=== PATIENT | female | born 1950 | race Caucasian/White ===

== ENCOUNTER → 2016-08-01 | Outpatient (CLI) | payer MEDICARE, OTHER | LOC: RAD 06:47 | PROVIDERS: ATTEND Nurse Practitioner | DX: M54.9 Dorsalgia, unspecified (principal); M48.02 Spinal stenosis, cervical region; M50.223 Other cervical disc displacement at C6-C7 level | CPT/HCPCS: 72141 ==

== ENCOUNTER 2016-09-03 10:10 | Inpatient (IN) | payer MEDICARE, OTHER ==
--- NOTE | 2016-09-03 10:39 | ER Document Report ---
ED Medical Screen (RME) - General Chief Complaint: Weakness Stated Complaint: BLOOD SUGAR PROBLEMS Mode of Arrival: Ambulatory Information source: Patient Notes: 66 y/o F presents to ED c/o generalized weakness and high blood sugar over the last month. Denies fever or chest pain. I have greeted and performed a rapid initial assessment of this patient. A comprehensive ED assessment and evaluation of the patient, analysis of test results and completion of the medical decision making process will be conducted by additional ED providers. TRAVEL OUTSIDE OF THE [place] IN LAST 30 DAYS: No - Related Data Allergies/Adverse Reactions: No Known Allergies Allergy (Verified 09/03/16 10:32) Past Medical History - Social History Chew tobacco use (# tins/day): No Drug Abuse: None - Past Medical History Cardiac Medical History: Reports: Hx Hypertension Denies: Hx Coronary Artery Disease, Hx Heart Attack Pulmonary Medical History: Reports: Hx Asthma, Hx Pneumonia Denies: Hx Bronchitis, Hx COPD Neurological Medical History: Denies: Hx Cerebrovascular Accident, Hx Seizures Renal/ Medical History: Denies: Hx Peritoneal Dialysis Musculoskeltal Medical History: Reports Hx Arthritis Psychiatric Medical History: Reports: Hx Depression Past Surgical History: Reports: Hx Hysterectomy - Immunizations Hx Diphtheria, Pertussis, Tetanus Vaccination: Yes Physical Exam - Vital signs Vitals: Temp Pulse Resp BP Pulse Ox 97.9 F 61 20 108/54 L 99 09/03/16 10:09/03/16 10:09/03/16 10:33 09/03/16 10:33 09/03/16 10:33 - General General appearance: Alert In distress: None - Respiratory Respiratory status: No respiratory distress - Cardiovascular Rhythm: Regular Pulses: Normal: Radial Normal capillary refill: Yes Course - Vital Signs Vital signs: Temp Pulse Resp BP Pulse Ox 97.9 F 61 20 108/54 L 99 09/03/16 10:33 09/03/16 10:33 09/03/16 10:33 09/03/16 10:33 09/03/16 10:33
[2016-09-03] MEDS ORDERED: PANTOPRAZOLE SODIUM 40 MG VIAL IV ONE (11:13)
[2016-09-03] MEDS ORDERED: NORMAL SALINE 1000 ML 1,000 ML IV ONE (11:13)
[2016-09-03 11:57] LABS: APPEARANCE,URINE CLEAR; BILIRUBIN,URINE NEGATIVE (NEGATIVE); GLUCOSE, URINE >=500 mg/dL (NEGATIVE); KETONES,URINE NEGATIVE (NEGATIVE); LEUKOCYTE ESTERASE,URINE TRACE (NEGATIVE); NITRITE,URINE NEGATIVE (NEGATIVE); PROTEIN,URINE NEGATIVE (NEGATIVE); URINE SPECIFIC GRAVITY 1.026; UROBILINOGEN,URINE NEGATIVE mg/dL (<2.0)
[2016-09-03 12:07] LABS: PROTHROMBIN TIME 19.9 SEC (11.4-15.4)
[2016-09-03 12:08] LABS: PARTIAL THROMBOPLASTIN TIME 37.1 SEC (23.5-35.8)
[2016-09-03 12:09] LABS: HGB HCT DIFFERENCE -1.2; MEAN CORPUSCULAR HEMOGLOBIN 22.8 pg (27.0-33.4); MEAN CORPUSCULAR HGB CONC 30.3 g/dL (32.0-36.0); MEAN CORPUSCULAR VOLUME 75 fl (80-97); RED BLOOD COUNT 1.92 10^6/uL (3.72-5.28); RED CELL DISTRIBUTION WIDTH 19.6 % (11.5-14.0); WHITE BLOOD COUNT 12.1 10^3/uL (4.0-10.5)
[2016-09-03] MEDS ORDERED: NORMAL SALINE 250 ML IV PRN ×4 (12:17→13:13)
[2016-09-03 12:23] LABS: HEMOGLOBIN 4.4 g/dL (12.0-15.5)
[2016-09-03 12:24] LABS: HEMATOCRIT 14.4 % (36.0-47.0)
[2016-09-03 12:31] LABS: ALANINE AMINOTRANSFERASE 27 U/L (9-52); ALBUMIN 3.8 g/dL (3.5-5.0); ALKALINE PHOSPHATASE 56 U/L (38-126); ANION GAP 15 (5-19); ASPARTATE AMINO TRANSFERASE 29 U/L (14-36); BILIRUBIN,TOTAL 0.6 mg/dL (0.2-1.3); BLOOD UREA NITROGEN 12 mg/dL (7-20); CALCIUM 9.5 mg/dL (8.4-10.2); CARBON DIOXIDE 21 mmol/L (22-30); CHLORIDE 99 mmol/L (98-107); CREATININE RESULT 0.78 mg/dL (0.52-1.25); GLUCOSE 149 mg/dL (75-110); LIPASE 75.3 U/L (23-300); PHOSPHORUS 4.5 mg/dL (2.5-4.5); POTASSIUM 4.8 mmol/L (3.6-5.0); SODIUM 135.3 mmol/L (137-145); TOTAL PROTEIN 6.6 g/dL (6.3-8.2)
[2016-09-03 12:36] LABS: BASOPHILS % (MANUAL) 1 % (0-2); EOSINOPHILS % (MANUAL) 0 % (0-6); LYMPHOCYTES % (MANUAL) 26 % (13-45); NUCLEATED RED BLOOD CELLS 1 /100 WBC (0); TOTAL CELLS COUNTED 100
[2016-09-03 12:38] LABS: ANISOCYTOSIS 2+; HYPOCHROMASIA 3+; MICROCYTOSIS 1+; POLYCHROMASIA 1+; TOXIC GRANULATION SLIGHT
--- NOTE | 2016-09-03 13:39 | ER Document Report ---
ED General - General Chief Complaint: Weakness Stated Complaint: BLOOD SUGAR PROBLEMS Mode of Arrival: Ambulatory TRAVEL OUTSIDE OF THE [place] IN LAST 30 DAYS: No - HPI Patient complains to provider of: generalized weakness Notes: Patient coming in for evaluation of generalized weakness. Patient also concerned about her blood sugars. Patient states she has multiple medical problems recently had a bout with A. fib Patient recently had a remote heart monitor placed and recently is currently on clindamycin for anabolic coverage after the. Otherwise patient states compliance with her medications states that she has been having "red velvet" stools over the last 3 days. Upon my entrance into the examination room patient is very pale. Other in complaining of generalized weakness patient has no specific complaints of fevers chills nausea vomiting chest pain abdominal pain - Related Data Allergies/Adverse Reactions: No Known Allergies Allergy (Verified 09/03/16 10:32) Past Medical History - General Information source: Patient - Social History Smoking Status: Never Smoker Chew tobacco use (# tins/day): No Drug Abuse: None Family History: Reviewed & Not Pertinent Patient has suicidal ideation: No Patient has homicidal ideation: No - Past Medical History Cardiac Medical History: Reports: Hx Hypertension Denies: Hx Coronary Artery Disease, Hx Heart Attack Pulmonary Medical History: Reports: Hx Asthma, Hx Pneumonia Denies: Hx Bronchitis, Hx COPD Neurological Medical History: Denies: Hx Cerebrovascular Accident, Hx Seizures Renal/ Medical History: Denies: Hx Peritoneal Dialysis Musculoskeltal Medical History: Reports Hx Arthritis Psychiatric Medical History: Reports: Hx Depression Past Surgical History: Reports: Hx Hysterectomy - Immunizations Hx Diphtheria, Pertussis, Tetanus Vaccination: Yes Hx Pneumococcal Vaccination: 08/02/14 Review of Systems - Review of Systems Constitutional: Weakness EENT: No symptoms reported Cardiovascular: No symptoms reported Respiratory: No symptoms reported Gastrointestinal: Other - Bloody stools Genitourinary: No symptoms reported Female Genitourinary: No symptoms reported Musculoskeletal: No symptoms reported Skin: No symptoms reported Hematologic/Lymphatic: No symptoms reported Neurological/Psychological: Weakness -: Yes All other systems reviewed and negative Physical Exam - Vital signs Vitals: Temp Pulse Resp BP Pulse Ox 97.9 F 61 20 108/54 L 99 09/03/16 10:33 09/03/16 10:33 09/03/16 10:33 09/03/16 10:33 09/03/16 10:33 Interpretation: Normal - General General appearance: Appears well, Alert - HEENT Head: Normocephalic, Atraumatic Eyes: Normal Conjunctiva: Other - Pale Pupils: PERRL - Respiratory Respiratory status: No respiratory distress Chest status: Nontender Breath sounds: Normal Chest palpation: Normal - Cardiovascular Rhythm: Regular Heart sounds: Normal auscultation Murmur: No - Abdominal Inspection: Normal Distension: No distension Bowel sounds: Normal Tenderness: Nontender Organomegaly: No organomegaly - Rectal Stool: Bloody Hemorrhoids: None - Back Back: Normal, Nontender - Extremities General upper extremity: Normal inspection, Nontender, Normal color, Normal ROM , Normal temperature General lower extremity: Normal inspection, Nontender, Normal color, Normal ROM , Normal temperature, Normal weight bearing. No: Dian's sign - Neurological Neuro grossly intact: Yes Cognition: Normal Orientation: AAOx4 [place] Coma Scale Eye Opening: Spontaneous [place] Coma Scale Verbal: Oriented [place] Coma Scale Motor: Obeys Commands [place] Coma Scale Total: 15 Speech: Normal Motor strength normal: LUE, RUE, LLE, RLE Sensory: Normal - Psychological Associated symptoms: Normal affect, Normal mood - Skin Skin Temperature: Warm Skin Moisture: Dry Skin Color: Pale Course - Re-evaluation Re-evalutation: 09/03/16 13:37 Patient coming in for evaluation of weakness a sent have a hemoglobin of 4.4 hematocrit 14. Rectal exam showed bright red blood. Discussed with hospitalist and GI on-call. Hospitalist was requesting FFP which will be given patient also receive 2 units of blood. Did discuss with GI on-call Dr. Echeverria. Patient will be admitted to the ICU 09/03/16 14:55 - Vital Signs Vital signs: Temp Pulse Resp BP Pulse Ox 97.9 F 61 16 98/48 L 100 09/03/16 10:33 09/03/16 10:33 09/03/16 13:07 09/03/16 11:49 09/03/16 13:07 - Laboratory Result Diagrams: 09/03/16 11:35 09/03/16 11:35 Laboratory results interpreted by me: 09/03/16 09/03/16 09/03/16 10:40 11:25 11:35 WBC 12.1 H RBC 1.92 L Hgb 4.4 L* Hct 14.4 L* MCV 75 L MCH 22.8 L MCHC 30.3 L RDW 19.6 H Plt Count 452 H PT APTT Sodium Carbon Dioxide Glucose POC Glucose 175 H Lactic Acid Urine Glucose (UA) >=500 H Ur Leukocyte Esterase TRACE H Crossmatch 09/03/16 09/03/16 09/03/16 11:35 11:35 11:35 WBC RBC Hgb Hct MCV MCH MCHC RDW Plt Count PT APTT Sodium 135.3 L Carbon Dioxide 21 L Glucose 149 H POC Glucose Lactic Acid 3.5 H Urine Glucose (UA) Ur Leukocyte Esterase Crossmatch See Detail 09/03/16 11:35 WBC RBC Hgb Hct MCV MCH MCHC RDW Plt Count PT 19.9 H APTT 37.1 H Sodium Carbon Dioxide Glucose POC Glucose Lactic Acid Urine Glucose (UA) Ur Leukocyte Esterase Crossmatch Critical Care Note - Critical Care Note Total time excluding time spent on procedures (mins): 35 Comments: Patient seen and evaluated patient has a GI bleed. Patient will be admitted to ICU Discharge - Discharge Clinical Impression: Coagulopathy, Anemia requiring transfusions A-fib Qualifiers: Atrial fibrillation type: unspecified Qualified Code(s): I48.91 - Unspecified atrial fibrillation GI bleed Qualifiers: GI bleed type/associated pathology: unspecified gastrointestinal hemorrhage type Qualified Code(s): K92.2 - Gastrointestinal hemorrhage, unspecified Condition: Good Disposition: ADMITTED INPATIENT Admitting Provider: Leslieist Joy Silver Unit Admitted: ICU
[2016-09-03] MEDS ORDERED: ACETAMINOPHEN 325 MG TABLET PO PRN (14:37)
[2016-09-03] MEDS ORDERED: ONDANSETRON HCL INJ/PF 4 MG/2 ML SDV IV PRN (14:45)
--- NOTE | 2016-09-03 15:07 | PDOC H&P ---
History of Present Illness Admission Date/PCP: 09/03/16 14:18 CRYSTAL QUEVEDO Patient complains of: Generalized weakness History of Present Illness: ATILIO LARA is a 66 year old female, with history of hypertension, hypothyroidism, atrial fibrillation states she is taking pradaxa and Coumadin presents to the hospital because of generalized weakness. The patient has been having palpitations chronically but more recent for this past several weeks. Patient likewise noted maroon-colored stools. There is no melena or hematemesis. Patient had intermittent abdominal discomfort that she attributes it to her hernia. Denies any diarrhea or constipation. Patient is getting progressively weak, which shortness of breath on exertion. She started to begin having lightheadedness and dizziness especially on standing up. Patient reports that she has been evaluated by the physician, she was referred to drupal web developer for an event recorder was placed. There is no syncopal episode noted. Earlier today, patient feels that her legs are so weak and heavy therefore she presents to the hospital for evaluation. Patient reportedly coagulopathic, with hemoglobin of 4. MCV was low. Patient was given FFP, blood transfusion was started, gastroenterology was consulted from the emergency room and patient was referred to the hospitalist for admission. Past Medical History Past Medical History: Medication reconciliation pending verification from the patient's pharmacist Cardiac Medical History: Reports: Hypertension Denies: Coronary Artery Disease, Myocardial Infarction Pulmonary Medical History: Reports: Asthma, Pneumonia Denies: Bronchitis, Chronic Obstructive Pulmonary Disease (COPD) Neurological Medical History: Denies: Seizures Endocrine Medical History: Reports: Diabetes Mellitus Type 2, Hypothyroidism Musculoskeltal Medical History: Reports: Arthritis Psychiatric Medical History: Reports: Depression Hematology: Denies: Anemia Past Surgical History Past Surgical History: Reports: Hysterectomy, Other - Back surgery Social History Information Source: Patient Smoking Status: Never Smoker Frequency of Alcohol Use: Rare Hx Recreational Drug Use: No Drugs: None Hx Prescription Drug Abuse: No Family History Family History: Other - Dementia, abdominal aortic aneurysm Parental Family History Reviewed: Yes Children Family History Reviewed: Yes Sibling(s) Family History Reviewed.: Yes Medication/Allergy Home Medications: Albuterol Sulfate [Albuterol Sulfate 2.5mg/3 mL] 1 each IH ASDIR PRN 10/27/13 Aspirin [Ecotrin] 81 mg PO DAILY 10/27/13 Calcium Carbonate [Calcium] 500 mg PO DAILY 10/27/13 Esomeprazole Mag Trihydrate [Nexium] 40 mg PO DAILY 10/27/13 Estrogens, Conjugated [Premarin 0.9 mg Tablet] 0.9 mg PO DAILY 10/27/13 Fluticasone/Salmeterol [Advair 500-50 Diskus 28 Dose] 1 puff IH BID 10/27/13 Losartan Potassium [Cozaar] 50 mg PO DAILY 10/27/13 Meloxicam [Mobic 7.5 mg Tablet] 7.5 mg PO DAILY 10/27/13 Metformin HCl [Glucophage] 500 mg PO BID 10/27/13 Montelukast Sodium [Singulair 10 mg Tablet] 10 mg PO DAILY 10/27/13 Venlafaxine HCl [Effexor 75 mg Tablet] 3 tab PO DAILY 10/27/13 Buspirone HCl [Buspar 5 mg Tablet] 5 mg PO DAILY 07/27/14 Multivitamin A-Z Women 1 tab PO DAILY 07/27/14 [place]-3 Fatty Acids/Fish Oil [Fish Oil 1,000 mg Capsule] 1,000 mg PO DAILY 07/27 Atorvastatin Calcium [Lipitor 80 mg Tablet] 40 mg PO QHS #30 tablet 08/02/14 Cephalexin Monohydrate [Keflex 500 mg Capsule] 500 mg PO Q6 #20 capsule Digoxin [Lanoxin 0.25 mg Tablet] 0.25 mg PO DAILY #30 tablet 08/02/14 Docusate Sodium [Colace 100 mg Capsule] 100 mg PO BID #60 capsule 08/02/14 Fexofenadine HCl [Salima] 180 mg PO DAILY #0 08/02/14 Levothyroxine Sodium 200 mcg PO DAILY #30 tablet 08/02/14 Metoprolol Succinate [Toprol Xl 50 mg Tab.sr] 75 mg PO Q12 #60 tab.sr.24h Warfarin Sodium [Coumadin 5 mg Tablet] 7.5 mg PO QHS #45 tablet 08/02/14 Allergies/Adverse Reactions: No Known Allergies Allergy (Verified 09/03/16 10:32) Review of Systems Constitutional: PRESENT: weakness - Generalized. ABSENT: chills, fever(s), headache(s), weight gain, weight loss Eyes: ABSENT: visual disturbances Ears: ABSENT: hearing changes Nose, Mouth, and Throat: ABSENT: mouth pain, sore throat Cardiovascular: PRESENT: dyspnea on exertion, edema - Chronic lower extremity, palpitations. ABSENT: chest pain, orthropnea Respiratory: ABSENT: cough, dyspnea, hemoptysis Gastrointestinal: PRESENT: abdominal pain - Mild, hematochezia. ABSENT: constipation, diarrhea, hematemesis, melena, nausea, vomiting Genitourinary: ABSENT: difficulty urinating, dysuria, hematuria Musculoskeletal: ABSENT: joint swelling Integumentary: ABSENT: pruritus, rash, wounds Neurological: PRESENT: dizziness. ABSENT: abnormal gait, abnormal speech, confusion, focal weakness, syncope Psychiatric: ABSENT: anxiety, depression, homidical ideation, suicidal ideation Endocrine: ABSENT: cold intolerance, heat intolerance, polydipsia, polyuria Hematologic/Lymphatic: PRESENT: easy bruising. ABSENT: easy bleeding Physical Exam Vital Signs: Temp Pulse Resp BP Pulse Ox 97.9 F 61 16 98/48 L 100 09/03/16 10:33 09/03/16 10:33 09/03/16 13:07 09/03/16 11:49 09/03/16 13:07 General appearance: PRESENT: no acute distress, cooperative, obese Head exam: PRESENT: atraumatic, normocephalic Eye exam: PRESENT: conjunctiva pale, EOMI, PERRLA. ABSENT: scleral icterus Ear exam: PRESENT: normal external ear exam. ABSENT: drainage Mouth exam: PRESENT: dry mucosa, tongue midline. ABSENT: neck supple Throat exam: ABSENT: post pharyngeal erythema, tonsillar erythema Neck exam: ABSENT: carotid bruit, JVD, lymphadenopathy, thyromegaly Respiratory exam: PRESENT: clear to auscultation nithya, unlabored. ABSENT: rales , rhonchi, wheezes Cardiovascular exam: PRESENT: irregular rhythm, +S1, +S2. ABSENT: diastolic murmur, gallop, rubs, systolic murmur Pulses: PRESENT: normal dorsalis pedis pul Vascular exam: PRESENT: normal capillary refill GI/Abdominal exam: PRESENT: hyperactive bowel sounds, soft, other - Palpable induration on the anterior abdominal wall below the umbilicus and the right side probably underlying hernia. No tenderness noted. ABSENT: distended, guarding, mass, organolmegaly, rebound, tenderness Rectal exam: PRESENT: deferred Extremities exam: PRESENT: full ROM. ABSENT: calf tenderness, clubbing, pedal edema Neurological exam: PRESENT: alert, awake, oriented to person, oriented to place , oriented to time, oriented to situation Psychiatric exam: PRESENT: appropriate affect, normal mood. ABSENT: homicidal ideation, suicidal ideation Skin exam: PRESENT: dry, intact, warm. ABSENT: cyanosis, rash Results Impressions: Chest X-Ray 09/03/16 11:12 IMPRESSION: No significant interval change. No acute findings. Other findings as noted above Assessment & Plan - Time Time Spent: 50 to 70 Minutes - Inpatient Certification Based on my medical assessment, after consideration of the patient's comorbidities, presenting symptoms, or acuity I expect that the services needed warrant INPATIENT care.: Yes I certify that my determination is in accordance with my understanding of Medicare's requirements for reasonable and necessary INPATIENT services [42 CFR 412.3e].: Yes Medical Necessity: Significant Comorbidiites Make Outpatient Treatment Too Risky , Need Close Monitoring Due to Risk of Patient Decompensation, Need For IV Fluids, Need For Continuous Telemetry Monitoring, Risk of Complication if Not Cared For in Hospital, Risk of Diagnosis Which Will Require Inpatient Eval/Care/ Monitoring Post Hospital Care: D/C Machine Striper Documentation - Plan Summary Plan Summary: The patient will be admitted to intensive care unit. We will hydrate the patient with normal saline gently. We will transfuse a total of 4 units of packed RBC. 2 units of FFP has been initiated in the emergency room. In the meantime we will obtain serial hematocrit monitoring posttransfusion. I will put the patient on Protonix drip. I will continue the digoxin and the metoprolol but give on a lower dose. I will hold any other antihypertensive medications. I will hold the patient's anticoagulants. Dr. Echeverria was consulted , case discussed with him, who will evaluate the patient. I will culture the patient's urine, begin ceftriaxone. MEGGAN pettit and Libby for DVT prophylaxis. Supplemental oxygen will be given. Further testing depends on initial evaluation as outlined above.
--- NOTE | 2016-09-03 15:33 | EKG REPORT ---
SEVERITY:- ABNORMAL ECG - SINUS RHYTHM NONSPECIFIC T ABNORMALITIES, DIFFUSE LEADS : Confirmed by: Christian Zhang MD 03-Sep-2016 15:32:37
[2016-09-03] MEDS ORDERED: DIGOXIN 0.25 MG TABLET PO ONE (16:00)
[2016-09-03] MEDS: CEFTRIAXONE 1 GM/D5W RTU 1 GM/50 ML RTUPB IV SCH (16:31)
[2016-09-03] MEDS: NORMAL SALINE 1000 ML 1,000 ML IV PRN (18:45)
[2016-09-03] MEDS: NORMAL SALINE 100 ML with PANTOPRAZOLE SODIUM 80 MG IV PRN ×2 (18:45)
[2016-09-03] MEDS ORDERED: BISACODYL 5 MG TABEC PO ONE (21:00)
[2016-09-03] MEDS ORDERED: METOPROLOL SUCCINATE 50 MG TAB.SR.24H PO SCH (22:00)
[2016-09-04] MEDS: METOPROLOL SUCCINATE 25 MG TAB.SR.24H PO SCH ×2 (04:25→10:52)
[2016-09-04 06:39] LABS: ANION GAP 14 (5-19); BLOOD UREA NITROGEN 8 mg/dL (7-20); CALCIUM 8.7 mg/dL (8.4-10.2); CARBON DIOXIDE 21 mmol/L (22-30); CHLORIDE 105 mmol/L (98-107); CREATININE RESULT 0.61 mg/dL (0.52-1.25); GLUCOSE 99 mg/dL (75-110); MAGNESIUM 1.8 mg/dL (1.6-2.3); POTASSIUM 4.5 mmol/L (3.6-5.0); SODIUM 139.8 mmol/L (137-145)
[2016-09-04] MEDS ORDERED: PEG 3350/NA SULF,BICARB,CL/KCL 4000 ML PO ONE (07:00)
[2016-09-04] MEDS ORDERED: (PENDING PHARMACY ID) (Levothyroxine Sodium [Levothyroxine Sodium] 200 MCG) PO SCH (10:00)
[2016-09-04] MEDS: NORMAL SALINE 1000 ML 1,000 ML IV PRN ×2 (10:05→18:46)
[2016-09-04] MEDS: DIGOXIN 0.25 MG TABLET PO SCH (10:53)
[2016-09-04] MEDS: LEVOTHYROXINE SODIUM 0.1 MG TABLET PO SCH (10:53)
[2016-09-04] MEDS: NORMAL SALINE 100 ML with PANTOPRAZOLE SODIUM 80 MG IV PRN ×2 (11:21)
[2016-09-04 13:51] LABS: ABSOLUTE BASOPHILS # (AUTO) 0.1 10^3/uL (0.0-0.2); ABSOLUTE EOSINOPHILS # (AUTO) 0.1 10^3/uL (0.0-0.6); ABSOLUTE LYMPHOCYTES (AUTO) 1.9 10^3/uL (0.5-4.7); ABSOLUTE MONOCYTES (AUTO) 1.4 10^3/uL (0.1-1.4); ABSOLUTE NEUT (AUTO) 7.5 10^3/uL (1.7-8.2); BASOPHILS % (AUTO) 0.5 % (0-2); EOSINOPHILS % (AUTO) 0.7 % (0-6); HEMATOCRIT 23.2 % (36.0-47.0); HGB HCT DIFFERENCE -0.4; LYMPHOCYTES % (AUTO) 17.6 % (13-45); MEAN CORPUSCULAR HEMOGLOBIN 25.3 pg (27.0-33.4); MEAN CORPUSCULAR HGB CONC 32.8 g/dL (32.0-36.0); MEAN CORPUSCULAR VOLUME 77 fl (80-97); MONOCYTES % (AUTO) 12.9 % (3-13); RED CELL DISTRIBUTION WIDTH 17.2 % (11.5-14.0); SEGMENTED NEUTROPHILS % (AUTO) 68.3 % (42-78)
[2016-09-04 13:55] LABS: HEMOGLOBIN 7.6 g/dL (12.0-15.5)
[2016-09-04] MEDS ORDERED: NORMAL SALINE 250 ML IV PRN ×2 (13:57)
--- NOTE | 2016-09-04 14:45 | PDOC PROGRESS REPORT ---
Subjective Progress Note for:: 09/04/16 Subjective:: she denies any chest pain or shortness of breath. She has completed 4 units of packed red blood cells her hemoglobin is still less than 8. Physical Exam Vital Signs: Temp Pulse Resp BP Pulse Ox 99.9 F 127 H 19 110/64 95 09/04/16 12:30 09/04/16 14:17 09/04/16 14:17 09/04/16 14:17 09/04/16 14:17 Intake & Output 09/03/16 09/04/16 09/05/16 06:59 06:59 06:59 Intake Total 907 598 Balance 907 598 General appearance: PRESENT: no acute distress Eye exam: PRESENT: conjunctiva pink. ABSENT: scleral icterus Mouth exam: PRESENT: moist, tongue midline Neck exam: ABSENT: JVD Respiratory exam: PRESENT: clear to auscultation nithya. ABSENT: rales, rhonchi, wheezes Cardiovascular exam: PRESENT: RRR. ABSENT: diastolic murmur, rubs, systolic murmur GI/Abdominal exam: PRESENT: normal bowel sounds, soft, other - Large ventral hernia. ABSENT: distended, guarding, mass, organolmegaly, rebound, tenderness Extremities exam: ABSENT: calf tenderness, clubbing, pedal edema Neurological exam: PRESENT: alert, awake, oriented to person, oriented to place , oriented to time, oriented to situation Psychiatric exam: PRESENT: appropriate affect Skin exam: PRESENT: dry, intact, warm. ABSENT: cyanosis, rash Results Laboratory Results: 09/04/16 13:28 09/04/16 06:18 09/03/16 09/04/16 09/04/16 16:40 06:18 13:28 WBC 11.0 H RBC 3.00 L Hgb 7.6 L D Hct 23.2 L MCV 77 L MCH 25.3 L MCHC 32.8 RDW 17.2 H Plt Count 250 Seg Neutrophils % 68.3 Lymphocytes % 17.6 Monocytes % 12.9 Eosinophils % 0.7 Basophils % 0.5 Absolute Neutrophils 7.5 Absolute Lymphocytes 1.9 Absolute Monocytes 1.4 Absolute Eosinophils 0.1 Absolute Basophils 0.1 Sodium 139.8 Potassium 4.5 Chloride 105 Carbon Dioxide 21 L Anion Gap 14 BUN 8 Creatinine 0.61 Est GFR ( Amer) > 60 Est GFR (Non-Af Amer) > 60 Glucose 99 Lactic Acid 1.5 Calcium 8.7 Magnesium 1.8 Impressions: Chest X-Ray 09/03/16 11:12 IMPRESSION: No significant interval change. No acute findings. Other findings as noted above Assessment & Plan - Diagnosis (1) GI bleed Qualifiers: GI bleed type/associated pathology: unspecified gastrointestinal hemorrhage type Qualified Code(s): K92.2 - Gastrointestinal hemorrhage, unspecified Is this a current diagnosis for this admission?: YesPlan: The patient has been taking GoLYTELY and has been move her bowels quite frequently. This most likely represents a diverticular bleed. Patient is to be getting a colonoscopy later today by GI. Hemoglobin has improved but still less than 8. We will give an additional 2 units of packed red blood cells. (2) A-fib Qualifiers: Atrial fibrillation type: unspecified Qualified Code(s): I48.91 - Unspecified atrial fibrillation Is this a current diagnosis for this admission?: YesPlan: Patient is rate controlled at this time. (3) Anemia requiring transfusions Is this a current diagnosis for this admission?: YesPlan: Secondary to acute blood loss from lower GI system. Transfuse as needed. - Time Time Spent with patient: 25-34 minutes - Inpatient Certification Medical Necessity: Need Close Monitoring Due to Risk of Patient Decompensation
[2016-09-04] MEDS ORDERED: NALOXONE HCL INJ/PF 0.4 MG/1 ML SDV ONE (16:41)
[2016-09-04] MEDS ORDERED: PROMETHAZINE HCL INJ 25 MG/1 ML VIAL ONE (16:42)
[2016-09-04] MEDS ORDERED: FENTANYL CITRATE INJ/PF 100 MCG/2 ML AMPUL ONE (16:42)
[2016-09-04] MEDS ORDERED: FLUMAZENIL INJ 0.5 MG/5 ML VIAL IV ONE (16:43)
[2016-09-04] MEDS ORDERED: EPINEPHRINE INJ 1 MG/10 ML DISP.SYRIN ONE (16:43)
[2016-09-04] MEDS ORDERED: GLUCAGON,HUMAN RECOMB 1 MG INJ ONE (16:43)
[2016-09-04] MEDS: CEFTRIAXONE 1 GM/D5W RTU 1 GM/50 ML RTUPB IV SCH (16:53)
[2016-09-04] MEDS: MIDAZOLAM 2 MG/2 ML INJ ONE ×3 (17:47→18:11)
[2016-09-04] MEDS: FENTANYL CITRATE INJ/PF 100 MCG/2 ML AMPUL ONE ×2 (17:50→17:55)
--- NOTE | 2016-09-04 18:34 | CONSULTATION REPORT E ---
Consultation Report NAME: ATILIO LARA : 1950 AGE: 66Y DATE: 09/04/2016 609 A TO: TAMICA CURRIE M.D. FROM: Requesting Physician HISTORY OF PRESENT ILLNESS: A 66-year-old patient admitted through the emergency room with generalized weakness and severe anemia. Her hemoglobin was 4.4 on admission with microcytosis. She also had a PT of 19.9. According to the patient, she has been seeing redness in her stool for about a month. She denies abdominal pain unless with palpation. There is no nausea or vomiting. It appears she was taking Coumadin and Pradaxa on admission. Her EGD and colonoscopy was about 5 years ago and as far as she knows, they were unremarkable. PAST MEDICAL HISTORY: 1. Hypertension. 2. Asthma. 3. Depression. 4. Arthritis. 5. Atrial fibrillation. PAST SURGICAL HISTORY: 1. Colonoscopy. 2. Hysterectomy. MEDICATIONS: Were reviewed. ALLERGIES: None. SOCIAL HISTORY: Noncontributory. REVIEW OF SYSTEMS: Other than the above, this is not contributory. PHYSICAL EXAMINATION: GENERAL: Shows an obese lady in no distress. VITAL SIGNS: She has a heart rate of over 130, blood pressure 130/83. HEENT: Has pallor but no jaundice. Oropharynx is normal. NECK: No bruit, no JVD. CHEST: No deformity. LUNGS: Clear. ABDOMEN: Soft and obese. Difficult to feel for masses. Bowel sounds active. NEUROLOGIC: Not fully examined. LABORATORY TESTS: Showed a high platelet count of 452, white count of 12, normal LFTs and lipase. ASSESSMENT AND PLAN: Gastrointestinal bleed. The patient came in with blood in the stool and severe anemia. She may have been on Coumadin and Pradaxa together. These are currently on hold. She did receive 2 units of FFP and 5 units of blood so far. She will undergo an EGD and colonoscopy for further evaluation. DICTATING PHYSICIAN: TAMICA CURRIE M.D. [id number] PHY#: [id number] ID: [id number] JOB#: [id number] ACCT: [id number] cc:TAMICA CURRIE M.D. >
--- NOTE | 2016-09-04 19:13 | OPERATIVE REPORT E ---
Operative Report NAME: ATILIO LARA : 1950 AGE: 66Y DATE OF SURGERY: 09/04/2016 ROOM: 609 PREOPERATIVE DIAGNOSIS: Gastrointestinal bleed. POSTOPERATIVE DIAGNOSIS: 1. Normal esophagogastroduodenoscopy. 2. 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 OPERATION: 1. Esophagogastroduodenoscopy. 2. Colonoscopy with cauterization. SURGEON: TAMICA CURRIE M.D. ANESTHESIA: Versed 4 mg, fentanyl 100 mcg IV push. TISSUE REMOVED OR ALTERED: None. PROCEDURE: After informed consent obtained from patient, conscious sedation was achieved. The upper endoscope was inserted into the esophagus and advanced into the duodenum. The duodenum was normal. The gastric antrum, body, fundus, and the esophagus were normal. The rectal examination was performed, and this was normal. The colonoscope was inserted into the rectum and advanced to the cecum. There was bright red blood noted from the rectum up to the proximal transverse colon. There was green stool in the ascending colon and the cecum. Detailed examination of the proximal transverse colon showed active bleeding from normal-appearing mucosa. The site was then cauterized using the bipolar probe. No bleeding was seen at the end of the procedure. The rest of the colon was then examined, and no other pathology was identified except for a few diverticula in the sigmoid colon. She also had internal hemorrhoids. PLAN: Continue to follow H and H. I would suggest that we avoid anticoagulants for a couple of days, but aspirin could be started if necessary. *------* DICTATING PHYSICIAN: TAMICA CURRIE M.D. [id number] Y#: [id number] ID: [id number] JOB#: [id number] ACCT: [id number] cc:TAMICA CURRIE M.D. >
[2016-09-04] MEDS ORDERED: METOPROLOL TARTRATE PF/INJ 5 MG/5 ML SDV IV ONE ×3 (21:17→23:45)
[2016-09-04] MEDS ORDERED: METOPROLOL TARTRATE 50 MG TABLET ONE (21:18)
[2016-09-04] MEDS ORDERED: METOPROLOL TARTRATE 50 MG TABLET PO SCH (22:00)
[2016-09-04] MEDS: FLUTICASONE/SALMETEROL DISKUS 500-50 MCG/DOSE IH SCH (22:00)
[2016-09-05] MEDS: NORMAL SALINE 100 ML with PANTOPRAZOLE SODIUM 80 MG IV PRN ×4 (01:12→10:08)
[2016-09-05] MEDS ORDERED: MAGNESIUM SULFATE/D5W 1 GM/100 ML RTUPB IV ONE (02:45)
[2016-09-05 04:12] LABS: ABSOLUTE EOSINOPHILS # (AUTO) 0.1 10^3/uL (0.0-0.6); ABSOLUTE LYMPHOCYTES (AUTO) 2.2 10^3/uL (0.5-4.7); ABSOLUTE MONOCYTES (AUTO) 1.7 10^3/uL (0.1-1.4); ABSOLUTE NEUT (AUTO) 7.2 10^3/uL (1.7-8.2); BASOPHILS % (AUTO) 0.4 % (0-2); EOSINOPHILS % (AUTO) 0.9 % (0-6); HEMOGLOBIN 9.4 g/dL (12.0-15.5); HGB HCT DIFFERENCE 0.2; LYMPHOCYTES % (AUTO) 19.4 % (13-45); MEAN CORPUSCULAR HEMOGLOBIN 26.8 pg (27.0-33.4); MEAN CORPUSCULAR HGB CONC 33.5 g/dL (32.0-36.0); MEAN CORPUSCULAR VOLUME 80 fl (80-97); MONOCYTES % (AUTO) 15.3 % (3-13); RED BLOOD COUNT 3.49 10^6/uL (3.72-5.28); RED CELL DISTRIBUTION WIDTH 17.8 % (11.5-14.0); WHITE BLOOD COUNT 11.3 10^3/uL (4.0-10.5)
[2016-09-05 04:29] LABS: ANION GAP 15 (5-19); BLOOD UREA NITROGEN 4 mg/dL (7-20); CALCIUM 8.5 mg/dL (8.4-10.2); CARBON DIOXIDE 17 mmol/L (22-30); CHLORIDE 105 mmol/L (98-107); CREATININE RESULT 0.55 mg/dL (0.52-1.25); GLUCOSE 160 mg/dL (75-110); POTASSIUM 3.6 mmol/L (3.6-5.0); SODIUM 137.2 mmol/L (137-145)
[2016-09-05] MEDS: NORMAL SALINE 1000 ML 1,000 ML IV PRN (09:22)
[2016-09-05] MEDS ORDERED: METOPROLOL SUCCINATE 50 MG TAB.SR.24H PO SCH (10:00)
[2016-09-05] MEDS: LEVOTHYROXINE SODIUM 0.1 MG TABLET PO SCH (10:08)
[2016-09-05] MEDS: FLUTICASONE/SALMETEROL DISKUS 500-50 MCG/DOSE IH SCH ×2 (10:08→21:53)
[2016-09-05] MEDS: DIGOXIN 0.25 MG TABLET PO SCH (10:09)
[2016-09-05] MEDS: METOPROLOL TARTRATE 50 MG TABLET PO SCH ×2 (10:09→21:53)
--- NOTE | 2016-09-05 10:12 | PDOC PROGRESS REPORT ---
Subjective Progress Note for:: 09/05/16 Subjective:: The patient had a upper and lower endoscopy done last night. 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 The patient has had no further evidence for bleeding. Her hemoglobin has remained stable. Physical Exam Vital Signs: Temp Pulse Resp BP Pulse Ox 97.9 F 100 15 134/66 H 99 09/05/16 08:00 09/05/16 08:00 09/05/16 08:10 09/05/16 08:10 09/05/16 08:10 Intake & Output 09/04/16 09/05/16 09/06/16 06:59 06:59 06:59 Intake Total 907 4219 Balance 907 4219 Weight 95.8 kg General appearance: PRESENT: no acute distress Eye exam: PRESENT: conjunctiva pink. ABSENT: scleral icterus Mouth exam: PRESENT: moist, tongue midline Neck exam: ABSENT: JVD Respiratory exam: PRESENT: clear to auscultation nithya. ABSENT: rales, rhonchi, wheezes Cardiovascular exam: PRESENT: RRR. ABSENT: diastolic murmur, rubs, systolic murmur GI/Abdominal exam: PRESENT: normal bowel sounds, soft, other - Nontender ventral hernia.. ABSENT: distended, guarding, mass, organolmegaly, rebound, tenderness Extremities exam: ABSENT: calf tenderness, clubbing, pedal edema Neurological exam: PRESENT: alert, awake, oriented to person, oriented to place , oriented to time, oriented to situation Psychiatric exam: PRESENT: appropriate affect Skin exam: PRESENT: dry, intact, warm. ABSENT: cyanosis, rash Results Laboratory Results: 09/05/16 04:01 09/05/16 04:01 09/04/16 09/05/16 09/05/16 13:28 04:01 04:01 WBC 11.0 H 11.3 H RBC 3.00 L 3.49 L Hgb 7.6 L D 9.4 L Hct 23.2 L 28.0 L MCV 77 L 80 MCH 25.3 L 26.8 L MCHC 32.8 33.5 RDW 17.2 H 17.8 H Plt Count 250 205 Seg Neutrophils % 68.3 64.0 Lymphocytes % 17.6 19.4 Monocytes % 12.9 15.3 H Eosinophils % 0.7 0.9 Basophils % 0.5 0.4 Absolute Neutrophils 7.5 7.2 Absolute Lymphocytes 1.9 2.2 Absolute Monocytes 1.4 1.7 H Absolute Eosinophils 0.1 0.1 Absolute Basophils 0.1 0.0 Sodium 137.2 Potassium 3.6 Chloride 105 Carbon Dioxide 17 L Anion Gap 15 BUN 4 L Creatinine 0.55 Est GFR ( Amer) > 60 Est GFR (Non-Af Amer) > 60 Glucose 160 H Calcium 8.5 Impressions: Chest X-Ray 09/03/16 11:12 IMPRESSION: No significant interval change. No acute findings. Other findings as noted above Assessment & Plan - Diagnosis (1) GI bleed Qualifiers: GI bleed type/associated pathology: unspecified gastrointestinal hemorrhage type Qualified Code(s): K92.2 - Gastrointestinal hemorrhage, unspecified Is this a current diagnosis for this admission?: YesPlan: The patient had an upper and lower endoscopy and was found to have a Dieulafoy lesion. Patient has had no further evidence for bleeding. We will transfer out of the intensive care unit to the floor and continue to monitor her hemoglobin overnight. Will advance the diet also. (2) A-fib Qualifiers: Atrial fibrillation type: unspecified Qualified Code(s): I48.91 - Unspecified atrial fibrillation Is this a current diagnosis for this admission?: YesPlan: Patient is rate controlled at this time. (3) Anemia requiring transfusions Is this a current diagnosis for this admission?: YesPlan: Secondary to acute blood loss from lower GI system. Transfuse as needed. - Time Time Spent with patient: 25-34 minutes - Inpatient Certification Medical Necessity: Need Close Monitoring Due to Risk of Patient Decompensation - Plan Summary Plan Summary: If She does well overnight with no further evidence for bleeding, we can hopefully discharge home tomorrow.
[2016-09-05] MEDS: PANTOPRAZOLE SODIUM 40 MG VIAL IV SCH (21:53)
[2016-09-06 06:13] LABS: ABSOLUTE BASOPHILS # (AUTO) 0.1 10^3/uL (0.0-0.2); ABSOLUTE EOSINOPHILS # (AUTO) 0.4 10^3/uL (0.0-0.6); ABSOLUTE LYMPHOCYTES (AUTO) 2.3 10^3/uL (0.5-4.7); ABSOLUTE MONOCYTES (AUTO) 1.4 10^3/uL (0.1-1.4); ABSOLUTE NEUT (AUTO) 5.2 10^3/uL (1.7-8.2); BASOPHILS % (AUTO) 0.8 % (0-2); EOSINOPHILS % (AUTO) 3.9 % (0-6); HEMATOCRIT 29.8 % (36.0-47.0); HEMOGLOBIN 9.8 g/dL (12.0-15.5); HGB HCT DIFFERENCE -0.4; LYMPHOCYTES % (AUTO) 25.1 % (13-45); MEAN CORPUSCULAR HEMOGLOBIN 26.5 pg (27.0-33.4); MEAN CORPUSCULAR HGB CONC 32.9 g/dL (32.0-36.0); MEAN CORPUSCULAR VOLUME 81 fl (80-97); MONOCYTES % (AUTO) 14.7 % (3-13); RED CELL DISTRIBUTION WIDTH 18.2 % (11.5-14.0); SEGMENTED NEUTROPHILS % (AUTO) 55.5 % (42-78); WHITE BLOOD COUNT 9.3 10^3/uL (4.0-10.5)
[2016-09-06 06:50] LABS: ANION GAP 14 (5-19); BLOOD UREA NITROGEN 5 mg/dL (7-20); CALCIUM 8.7 mg/dL (8.4-10.2); CARBON DIOXIDE 18 mmol/L (22-30); CHLORIDE 108 mmol/L (98-107); CREATININE RESULT 0.61 mg/dL (0.52-1.25); GLUCOSE 126 mg/dL (75-110); POTASSIUM 3.5 mmol/L (3.6-5.0); SODIUM 139.9 mmol/L (137-145)
[2016-09-06] MEDS: LEVOTHYROXINE SODIUM 0.1 MG TABLET PO SCH (10:07)
[2016-09-06] MEDS: FLUTICASONE/SALMETEROL DISKUS 500-50 MCG/DOSE IH SCH (10:07)
[2016-09-06] MEDS: PANTOPRAZOLE SODIUM 40 MG VIAL IV SCH (10:07)
[2016-09-06] MEDS: METOPROLOL TARTRATE 50 MG TABLET PO SCH (10:07)
[2016-09-06 11:09] VITALS: BP 158/94
--- NOTE | 2016-09-06 12:09 | PDOC DISCHARGE SUMMARY ---
General - Admit/Disc Date/PCP Admission Date/Primary Care Provider: 09/03/16 14:37 CRYSTAL QUEVEDO Discharge Date: 09/06/16 - Discharge Diagnosis (1) GI bleed Is this a current diagnosis for this admission?: YesSummary: Found to have a deulifoy lesion of the transverse colon treated with cauterization. She required 4 units packed red blood cells (2) A-fib Is this a current diagnosis for this admission?: Yes (3) Anemia requiring transfusions Is this a current diagnosis for this admission?: Yes - Additional Information Resuscitation Status: Full Code Discharge Diet: Diabetic Discharge Activity: Activity As Tolerated, Balance Activity w/Rest Home Medications: Albuterol Sulfate [Albuterol Sulfate 2.5mg/3 mL] 3 ml NEB RTTID 09/03/16 Atorvastatin Calcium [Lipitor 40 mg Tablet] 60 mg PO DAILY 09/03/16 Buspirone HCl [Buspar 5 mg Tablet] 5 mg PO Q12 09/03/16 Clotrimazole 1 applic TOP Q12 09/03/16 Cyclobenzaprine HCl [Flexeril 10 mg Tablet] 10 mg PO Q12 09/03/16 Dabigatran Etexilate Mesylate [Pradaxa 150 mg Capsule] 150 mg PO Q12 09/03/16 Digoxin [Lanoxin] 250 mcg PO DAILY 09/03/16 Diltiazem HCl [Cardizem Cd 120 mg Capsule] 120 mg PO DAILY 09/03/16 Docusate Sodium [Colace 100 mg Capsule] 100 mg PO Q12 09/03/16 Empagliflozin [Jardiance] 25 mg PO QAM 09/03/16 Esomeprazole Mag Trihydrate [Nexium] 40 mg PO DAILY 09/03/16 Fexofenadine HCl [Salima] 180 mg PO DAILY 09/03/16 Fluticasone/Salmeterol [Advair 250-50 Diskus 28 dose] 1 puff IH Q12 09/03/16 Hydrocodone/Acetaminophen [Llano 7.5-325 Tablet] 1 tab PO Q4HP PRN 09/03/16 Insulin Glargine,Hum.rec.anlog [Lantus Solostar] 11 units SQ QPM 09/03/16 Levothyroxine Sodium [Synthroid] 175 mcg PO DAILY 09/03/16 Losartan Potassium [Cozaar 25 mg Tablet] 25 mg PO DAILY 09/03/16 Meloxicam [Mobic 7.5 mg Tablet] 7.5 mg PO Q12HP PRN 09/03/16 Metformin HCl [Metformin HCl ER] 1,000 mg PO Q12 09/03/16 Metoprolol Succinate [Toprol XL 100 mg Tablet] 100 mg PO DAILY 09/03/16 Montelukast Sodium [Singulair 10 mg Tablet] 10 mg PO QPM 09/03/16 Barrington-3 Acid Ethyl Esters [Lovaza 1 gm Capsule] 2 gm PO Q12 09/03/16 Sitagliptin Phosphate [Januvia] 100 mg PO DAILY 09/03/16 Venlafaxine HCl ER [Effexor Xr 75 mg Cap.sr] 225 mg PO DAILY 09/03/16 Digoxin [Lanoxin 0.25 mg Tablet] 0.25 mg PO DAILY tablet 09/06/16 Metoprolol Tartrate [Lopressor 50 mg Tablet] 75 mg PO Q12 #60 tablet 09/06/16 History of Present Illness History of Present Illness: ATILIO LARA is a 66 year old female who was taking Ranexa because of age fibrillation presented with maroon-colored stools. She also had some crampy lower abdominal pain. The patient was found to have a hemoglobin of 4. Patient was given FFP, blood transfusion and is admitted for further workup. Hospital Course Hospital Course: 66-year-old female who had been nonproductive because of age fibrillation who presented with a lower GI bleed. Patient was given FFP, 4 units packed red blood cells with improvement in her hemoglobin and coagulopathy. The patient was evaluated by GI who performed an upper and lower endoscopy. The lower endoscopy found her to have a transverse colon deulifoy lesion. Patient underwent cautery of this and had no further evidence for any bleeding. Her hemoglobin has remained stable was felt that she was stable for discharge to home. She also will not take anymore anticoagulation at this time for her atrial fibrillation this will be addressed at a later date. Physical Exam Vital Signs: Temp Pulse Resp BP Pulse Ox 97.9 F 68 20 158/94 H 99 09/06/16 10:56 09/06/16 10:56 09/06/16 10:56 09/06/16 10:56 09/06/16 10:56 Intake & Output 09/05/16 09/06/16 09/07/16 06:59 06:59 06:59 Intake Total 4219 1825 Output Total 1000 Balance 4219 825 Weight 95.8 kg 97.2 kg General appearance: PRESENT: no acute distress Eye exam: PRESENT: conjunctiva pink. ABSENT: scleral icterus Mouth exam: PRESENT: moist, tongue midline Neck exam: ABSENT: carotid bruit, JVD, lymphadenopathy, thyromegaly Respiratory exam: PRESENT: clear to auscultation nithya. ABSENT: rales, rhonchi, wheezes Cardiovascular exam: PRESENT: irregular rhythm. ABSENT: diastolic murmur, rubs , systolic murmur GI/Abdominal exam: PRESENT: normal bowel sounds, soft. ABSENT: distended, guarding, mass, organolmegaly, rebound, tenderness Extremities exam: ABSENT: calf tenderness, clubbing, pedal edema Neurological exam: PRESENT: alert, awake, oriented to person, oriented to place , oriented to time, oriented to situation Psychiatric exam: PRESENT: appropriate affect Results Laboratory Results: 09/06/16 04:54 09/06/16 04:54 09/06/16 09/06/16 04:54 04:54 WBC 9.3 RBC 3.70 L Hgb 9.8 L Hct 29.8 L MCV 81 MCH 26.5 L MCHC 32.9 RDW 18.2 H Plt Count 235 Seg Neutrophils % 55.5 Lymphocytes % 25.1 Monocytes % 14.7 H Eosinophils % 3.9 Basophils % 0.8 Absolute Neutrophils 5.2 Absolute Lymphocytes 2.3 Absolute Monocytes 1.4 Absolute Eosinophils 0.4 Absolute Basophils 0.1 Sodium 139.9 Potassium 3.5 L Chloride 108 H Carbon Dioxide 18 L Anion Gap 14 BUN 5 L Creatinine 0.61 Est GFR ( Amer) > 60 Est GFR (Non-Af Amer) > 60 Glucose 126 H Calcium 8.7 Impressions: Chest X-Ray 09/03/16 11:12 IMPRESSION: No significant interval change. No acute findings. Other findings as noted above Qualifiers PATEINT BEING DISCHARGED WITH ANY OF THE FOLLOWING DIAGNOSIS?: No Plan Discharge Plan: He is discharged home in stable condition. Time Spent: Greater than 30 Minutes
== END 2016-09-06 11:27 | disposition home or self-care (01) | DRG 395 ==
LOC: ER 10:10 → UNDOADMIN 14:18 → EH 14:18 → ICU 09-04 12:35 → 4N 09-05 15:14
PROC: 30233N1 Transfusion of Nonautologous Red Blood Cells into Peripheral Vein, Percutaneous Approach (ICD-10-PCS; 2016-09-04)
PROC: 0D5L8ZZ Destruction of Transverse Colon, Via Natural or Artificial Opening Endoscopic (ICD-10-PCS; principal; 2016-09-04 17:30)
PROC: 0DJ08ZZ Inspection of Upper Intestinal Tract, Via Natural or Artificial Opening Endoscopic (ICD-10-PCS; 2016-09-04 17:30)
DX: K63.81 Dieulafoy lesion of intestine (principal); I48.91 Unspecified atrial fibrillation; D64.9 Anemia, unspecified; E11.9 Type 2 diabetes mellitus without complications; I10 Essential (primary) hypertension; E03.9 Hypothyroidism, unspecified; J45.909 Unspecified asthma, uncomplicated; F32.9 Major depressive disorder, single episode, unspecified; M19.90 Unspecified osteoarthritis, unspecified site; Z79.899 Other long term (current) drug therapy; Z79.01 Long term (current) use of anticoagulants; Z79.82 Long term (current) use of aspirin; Z90.710 Acquired absence of both cervix and uterus
CPT/HCPCS: 36415; 36430; 43235; 45382; 71010; 80048; 80053; 80162; 81001; 82272; 82962; 83605; 83690; 83735; 84100; 85025; 85610; 85730; 86850; 86900; 86901; 86920; 87040; 87077; 93005; 93010; 96361; 96374; 99291; J0171; J0696; J1610; J2250; J2310; J2550; J3010; J3475; J3490; J7030; P9016; P9017; S0164

== ENCOUNTER 2016-12-12 08:17 | Day surgery (SDC) | payer MEDICARE, OTHER ==
[~2016-12-12 08:17] MED LIST: DIPHENHYDRAMINE HCL 50 MG/ML VIAL ONE; EPINEPHRINE INJ 1 MG/10 ML DISP.SYRIN ONE; FLUMAZENIL INJ 0.5 MG/5 ML VIAL IV ONE; GLUCAGON,HUMAN RECOMB 1 MG INJ ONE; MIDAZOLAM 2 MG/2 ML INJ ONE; NALOXONE HCL INJ/PF 0.4 MG/1 ML SDV ONE; ONDANSETRON HCL INJ/PF 4 MG/2 ML SDV ONE
[2016-12-12] MEDS: MIDAZOLAM 2 MG/2 ML INJ ONE ×2 (09:17→09:24)
[2016-12-12] MEDS: FENTANYL CITRATE INJ/PF 100 MCG/2 ML AMPUL ONE ×2 (09:19→09:21)
--- NOTE | 2016-12-12 09:32 | Operative Report ---
Operative Report DATE OF SURGERY: 12/12/16 Operative Report: The risks benefits and alternatives of the procedure explained to the patient in detail and informed consent is obtained. A GIF Olympus video scope was inserted into the patient's mouth and hypopharynx ,the esophagus is identified intubated and insufflated ,the scope was then advanced through the esophagus stomach and duodenum, retroflexion maneuver is done, the esophagus stomach and first and second portions of the duodenum examined PREOPERATIVE DIAGNOSIS: Dysphagia POSTOPERATIVE DIAGNOSIS: Mild gastritis status post antral biopsy. Did not see a stricture. No evidence of a Schatzki's ring. No esophageal rings or furrows. Question Latoya esophagitis status post brushing for JUAN OPERATION: EGD with biopsy SURGEON: TANYA TALAVERA ANESTHESIA: Moderate Sedation - 4 mg of Versed, 100 mcg of fentanyl. Conscious sedation monitoring time 30 minutes. TISSUE REMOVED OR ALTERED: As described above COMPLICATIONS: None. ESTIMATED BLOOD LOSS: None. INTRAOPERATIVE FINDINGS: As described above. PROCEDURE: Patient tolerated procedure well. No immediate postprocedure complications are noted. Patient discharged in good condition. Discharge date 12/12/2016. Discharge diet: Regular. Discharge activity: Regular. 2-3 week follow-up to discuss findings. Patient is instructed to call the office or proceed to the emergency room should there be any further problems or questions. We will wait on biopsies.
[2016-12-12 10:44] VITALS: BP 102/56
== END 2016-12-12 10:36 | disposition home or self-care (01) ==
LOC: END 08:17
PROVIDERS: ATTEND Internal Medicine Gastroenterology
PROC: 0DB68ZX Excision of Stomach, Via Natural or Artificial Opening Endoscopic, Diagnostic (ICD-10-PCS; principal; 2016-12-12 09:00)
DX: K29.50 Unspecified chronic gastritis without bleeding (principal); I10 Essential (primary) hypertension; E11.9 Type 2 diabetes mellitus without complications; E78.2 Mixed hyperlipidemia; E03.9 Hypothyroidism, unspecified; K21.9 Gastro-esophageal reflux disease without esophagitis; I48.2 Chronic atrial fibrillation; J45.40 Moderate persistent asthma, uncomplicated; E66.2 Morbid (severe) obesity with alveolar hypoventilation; F33.42 Major depressive disorder, recurrent, in full remission; Z68.32 Body mass index [BMI] 32.0-32.9, adult; Z79.4 Long term (current) use of insulin
CPT/HCPCS: 43239; 87210; 82962; 88342 ×2; 88305 ×2; J2250; J0171; J3010; J1200; J1610; J2310; J2405; J3490

== ENCOUNTER 2017-02-16 06:25 | Emergency (ER) | payer MEDICARE, OTHER ==
--- NOTE | 2017-02-16 07:06 | ER Document Report ---
ED General - General Chief Complaint: Post Surgical Bleeding Stated Complaint: BLEEDING FROM SURGICAL SITE Time Seen by Provider: 02/16/17 06:52 TRAVEL OUTSIDE OF THE [place] IN LAST 30 DAYS: No - HPI Patient complains to provider of: Surgical site complication Notes: Patient status ventral hernia repair on January 17 presents with continued drainage from her anterior surgical site. Patient denies any pain fever chills question of the wound dehisced. Patient was seen by her surgeon on Saturday started on Bactrim instructed to leave the wound open and let it drain. Family is concerned and want to get another evaluation. Patient denies fever, chills, nausea, vomiting, diarrhea, dysuria having normal bowel movements. No overlying cellulitic changes. - Related Data Allergies/Adverse Reactions: No Known Allergies Allergy (Verified 09/03/16 10:32) Past Medical History - Social History Smoking Status: Unknown if Ever Smoked Family History: Other - Dementia, abdominal aortic aneurysm Patient has suicidal ideation: No Patient has homicidal ideation: No - Past Medical History Cardiac Medical History: Reports: Hx Hypertension Denies: Hx Coronary Artery Disease, Hx Heart Attack Pulmonary Medical History: Reports: Hx Asthma, Hx Pneumonia Denies: Hx Bronchitis, Hx COPD Neurological Medical History: Denies: Hx Cerebrovascular Accident, Hx Seizures Endocrine Medical History: Reports: Hx Diabetes Mellitus Type 2, Hx Hypothyroidism Renal/ Medical History: Denies: Hx Peritoneal Dialysis Musculoskeltal Medical History: Reports Hx Arthritis Psychiatric Medical History: Reports: Hx Depression Past Surgical History: Reports: Hx Hysterectomy, Other - Back surgery - Immunizations Hx Diphtheria, Pertussis, Tetanus Vaccination: Yes Hx Pneumococcal Vaccination: 08/02/14 Review of Systems - Review of Systems Constitutional: No symptoms reported EENT: No symptoms reported Cardiovascular: No symptoms reported Respiratory: No symptoms reported Gastrointestinal: No symptoms reported Genitourinary: No symptoms reported Female Genitourinary: No symptoms reported Musculoskeletal: No symptoms reported Skin: Other - Female is approximately a 5 inch surgical incision in the anterior abdomen. Inferior aspect is open approximately 1" x 1" draining. No foul smell no overlying cellulitic changes. Hematologic/Lymphatic: No symptoms reported Neurological/Psychological: No symptoms reported Physical Exam - Vital signs Vitals: Temp Pulse Resp BP Pulse Ox 97.7 F 67 18 119/48 L 95 02/16/17 06:31 02/16/17 06:31 02/16/17 06:31 02/16/17 06:31 02/16/17 06:31 Interpretation: Normal - General General appearance: Appears well, Alert - HEENT Head: Normocephalic, Atraumatic Eyes: Normal Pupils: PERRL - Respiratory Respiratory status: No respiratory distress Chest status: Nontender Breath sounds: Normal Chest palpation: Normal - Cardiovascular Rhythm: Regular Heart sounds: Normal auscultation Murmur: No - Abdominal Inspection: Normal Distension: No distension Bowel sounds: Normal Tenderness: Nontender Organomegaly: No organomegaly Adult front & back diagram: 1 - 4 inch surgical site inferior 1 inch open draining clear/serosanguineous fluid. - Back Back: Normal, Nontender - Extremities General upper extremity: Normal inspection, Nontender, Normal color, Normal ROM , Normal temperature General lower extremity: Normal inspection, Nontender, Normal color, Normal ROM , Normal temperature, Normal weight bearing. No: Dian's sign - Neurological Neuro grossly intact: Yes Cognition: Normal Orientation: AAOx4 [place] Coma Scale Eye Opening: Spontaneous [place] Coma Scale Verbal: Oriented [place] Coma Scale Motor: Obeys Commands [place] Coma Scale Total: 15 Speech: Normal Motor strength normal: LUE, RUE, LLE, RLE Sensory: Normal - Psychological Associated symptoms: Normal affect, Normal mood - Skin Skin Temperature: Warm Skin Moisture: Dry Skin Color: Normal Course - Re-evaluation Re-evalutation: 02/16/17 07:03 Well-appearing female presents with a well-healed surgical site that is open mildly dehisced. Wound is greater than 1 month old at this time. Being treated for possible infection by her surgeon. On Bactrim. Will place patient on Keflex to expand the coverage. Given strict return precautions especially for nausea vomiting or fever overlying skin changes or any pain. Patient is pain-free he appears well at this time. Instructed to continue to pack the wound as described by the surgeon. - Vital Signs Vital signs: Temp Pulse Resp BP Pulse Ox 97.7 F 67 18 119/48 L 95 02/16/17 06:31 02/16/17 06:31 02/16/17 06:31 02/16/17 06:31 02/16/17 06:31 Discharge - Discharge Clinical Impression: Surgical site infection Qualifiers: Encounter type: initial encounter Qualified Code(s): T81.4XXA - Infection following a procedure, initial encounter Condition: Stable Disposition: HOME, SELF-CARE Instructions: Hernia ([facility]) Additional Instructions: Follow-up with your surgeon today getting to see him in the office on Saturday. If anything changes please return. Continue to take Bactrim and Keflex. Prescriptions: Cephalexin Monohydrate [Keflex 500 mg Capsule] 500 mg PO QID #20 capsule
[2017-02-16 07:20] VITALS: BP 102/44
== END 2017-02-16 07:20 | disposition home or self-care (01) ==
LOC: ER 06:25
DX: T81.4XXA Infection following a procedure, initial encounter (principal); X58.XXXA Exposure to other specified factors, initial encounter; E11.9 Type 2 diabetes mellitus without complications; E03.9 Hypothyroidism, unspecified; Z90.710 Acquired absence of both cervix and uterus; I10 Essential (primary) hypertension
CPT/HCPCS: 99283

== ENCOUNTER → 2017-04-16 | Outpatient (CLI) | payer OTHER, MEDICARE ==
--- NOTE | 2017-04-16 16:38 | WOMENS IMAGING REPORT ---
EXAM DESCRIPTION: BILAT SCREENING MAMMO W/CAD COMPLETED DATE/TIME: 04/16/2017 7:46 am REASON FOR STUDY: SCREENING MAMMO Z12.31 ENCNTR SCREEN MAMMOGRAM FOR MALIGNANT NEOPLASM OF JOSEFINA COMPARISON: 2011 to 2013 TECHNIQUE: Standard craniocaudal and mediolateral oblique views of each breast recorded using digita l acquisition. LIMITATIONS: None. FINDINGS: No masses, calcifications or architectural distortion. No areas of suspicion. Read with the assistance of CAD. .[facility] [place] - R2 Cenova Version 1.3 .[facility] - R2 Cenova Version 1.3 .[facility] - R2 Cenova Version 2.4 .[facility] [place]2 Cenova Version 2.4 .[facility] - R2 Contamination Consultant Version 9.2 IMPRESSION: NORMAL MAMMOGRAM. BIRADS 1. BREAST DENSITY: a. The breasts are almost entirely fatty. BIRAD: 1 NEGATIVE RECOMMENDATION: ROUTINE SCREENING COMMENT: The patient has been notified of the results by letter per SA requirements. Additional no tification policies are in place for contacting patient with suspicious or incomplete findings. Quality ID #[id number]: The [employer] recommends an annual screening mammogram for women aged 40 years or over. This facility utilizes a reminder system to ensure that all patients receive reminder letters, and/or direct phone calls for appointments. This includes reminders for routine scr eening mammograms, diagnostic mammograms, or other Breast Imaging Interventions when appropriate. Th is patient will be placed in the appropriate reminder system. The [employer] (ACR) has developed recommendations for screening MRI of the breast s in certain patient populations, to be used in conjunction with mammography. Breast MRI surveillanc e may be appropriate for women with more than 20% lifetime risk of developing breast cancer as deter mined by genetic testing, significant family history of the disease, or history of mantle radiation f or Hodgkins Disease. ACR Practice Guidelines 2008. TECHNICAL DOCUMENTATION: FINDING NUMBER: (1) ASSESSMENT: (1) JOB ID: [id number] [employer]- All Rights Reserved
== END ==
LOC: WI 07:02
PROVIDERS: ATTEND Physician Assistant Medical
DX: Z12.31 Encounter for screening mammogram for malignant neoplasm of breast (principal)
CPT/HCPCS: 77067; G0202

== ENCOUNTER → 2018-02-17 | Outpatient (CLI) | payer MEDICARE, OTHER ==
--- NOTE | 2018-02-17 16:40 | RADIOLOGY REPORT (SQ) ---
EXAM DESCRIPTION: CT ABD/PELVIS WITH IV ORAL COMPLETED DATE/TIME: 02/17/2018 1:38 pm REASON FOR STUDY: UNSPECIFIED ABDOMINAL PAIN R10.9 UNSPECIFIED ABDOMINAL PAIN Z98.890 OTHER SPECIF IED POSTPROCEDURAL STATES T81.89XA OTH COMPLICATIONS OF PROCEDURES, NEC, INIT COMPARISON: 07/05/2016 TECHNIQUE: CT scan of the abdomen and pelvis performed with intravenous and oral contrast using quique carloz scanning technique with dynamic intravenous contrast injection. Images reviewed with lung, soft t issue, and bone windows. Reconstructed coronal and sagittal MPR images reviewed. Delayed images for e valuation of the urinary system also acquired. All images stored on PACS. All CT scanners at this facility use dose modulation, iterative reconstruction, and/or weight based d osing when appropriate to reduce radiation dose to as low as reasonably achievable (ALARA). [facility]: Dose Right [facility]: CareDose [facility]: Dose Right [facility]: Teradose 4D [facility]: Puridify CONTRAST TYPE AND DOSE: contrast/concentration: Isovue 350.00 mg/ml; Total Contrast Delivered: 100.0 ml; Total Saline Delivered: 72.0 ml RENAL FUNCTION: Creatinine 0.5 RADIATION DOSE: CT Rad equipment meets quality standard of care and radiation dose reduction techniq ues were employed. CTDIvol: 17.5 - 18.4 mGy. DLP: 1899 mGy-cm. . LIMITATIONS: None. FINDINGS: LOWER CHEST: No significant findings. No nodules or infiltrates. LIVER: Normal size. No masses. No dilated ducts. SPLEEN: Normal size. No focal lesions. PANCREAS: No masses. No significant calcifications. No adjacent inflammation or peripancreatic fluid collections. Pancreatic duct not dilated. GALLBLADDER: Gallstones. No inflammatory changes to suggest cholecystitis. ADRENAL GLANDS: No significant masses or asymmetry. RIGHT KIDNEY AND URETER: No solid masses. No significant calcifications. No hydronephrosis or hyd roureter. LEFT KIDNEY AND URETER: No solid masses. No significant calcifications. No hydronephrosis or hydr oureter. AORTA AND VESSELS: No aneurysm. No dissection. Renal arteries, SMA, celiac without stenosis. RETROPERITONEUM: No retroperitoneal adenopathy, hemorrhage or masses. BOWEL AND PERITONEAL CAVITY: No obstruction. No visualized masses. No free fluid. No inflammatory ch anges or thickening of bowel wall. APPENDIX: Not visualized. PELVIS: No significant masses. Normal bladder. No free fluid. ABDOMINAL WALL: Anterior abdominal wall hernias have been repaired. Less than 1 cm gas bubble in the surgical bed near the umbilicus. BONES: No significant or acute findings. OTHER: No other significant finding. IMPRESSION: Residual postsurgical scarring anterior abdominal wall. No evidence of recurrent hernia . TECHNICAL DOCUMENTATION: JOB ID: [id number] Quality ID # [id number]: Final reports with documentation of one or more dose reduction techniques (e.g., Au tomated exposure control, adjustment of the mA and/or kV according to patient size, use of iterative reconstruction technique) 2010 [employer]- All Rights Reserved Reading location - IP/workstation name: [facility]-[email or web address]
== END ==
LOC: RAD 12:54
PROVIDERS: ATTEND Surgery
DX: T81.89XA Other complications of procedures, not elsewhere classified, initial encounter (principal); R10.9 Unspecified abdominal pain; Z98.890 Other specified postprocedural states; X58.XXXA Exposure to other specified factors, initial encounter
CPT/HCPCS: 36415; 74177; 82565

== ENCOUNTER → 2018-04-08 | Day surgery (SDC) | payer MEDICARE, OTHER ==
[2018-03-18 12:43] LABS: BLOOD UREA NITROGEN 8 mg/dL (7-20); CALCIUM 9.6 mg/dL (8.4-10.2); CHLORIDE 105 mmol/L (98-107); GLUCOSE 129 mg/dL (75-110); POTASSIUM 4.2 mmol/L (3.6-5.0)
[2018-03-18 12:44] LABS: ANION GAP 14 (5-19); CARBON DIOXIDE 24 mmol/L (22-30); SODIUM 142.7 mmol/L (137-145)
[2018-03-18 13:21] LABS: HEMATOCRIT 46.3 % (36.0-47.0); HEMOGLOBIN 15.2 g/dL (12.0-15.5); MEAN CORPUSCULAR HEMOGLOBIN 28.4 pg (27.0-33.4); MEAN CORPUSCULAR HGB CONC 32.9 g/dL (32.0-36.0); MEAN CORPUSCULAR VOLUME 86 fl (80-97); PLATELET COUNT 329 10^3/uL (150-450); RED BLOOD COUNT 5.37 10^6/uL (3.72-5.28); RED CELL DISTRIBUTION WIDTH 16.3 % (11.5-14.0); WHITE BLOOD COUNT 8.5 10^3/uL (4.0-10.5)
--- NOTE | 2018-03-18 23:13 | EKG REPORT ---
SEVERITY:- BORDERLINE ECG - SINUS RHYTHM BORDERLINE LEFT AXIS DEVIATION BORDERLINE T ABNORMALITIES, DIFFUSE LEADS : Confirmed by: Marcelino Rsoas 18-Mar-2018 23:13:05
[~2018-04-08] MED LIST changes: +ALBUTEROL SULFATE 0.083% NEB 2.5 MG/3 ML AMPUL NEB ONE; +CEFAZOLIN 1 GM/D5W RTU 1 GM/50 ML RTUPB IV PRN; -DIPHENHYDRAMINE HCL 50 MG/ML VIAL ONE; -EPINEPHRINE INJ 1 MG/10 ML DISP.SYRIN ONE; +FAMOTIDINE INJ/PF 20 MG/2 ML SDV IV ONE; -FLUMAZENIL INJ 0.5 MG/5 ML VIAL IV ONE; -GLUCAGON,HUMAN RECOMB 1 MG INJ ONE; +LIDOCAINE 0.5% INJ-PF (5 MG/ML) 50 ML SDV SUBCUT PRN; +METOCLOPRAMIDE HCL INJ/PF 10 MG/2 ML SDV IV ONE; +METOCLOPRAMIDE HCL INJ/PF 10 MG/2 ML SDV ONE; -MIDAZOLAM 2 MG/2 ML INJ ONE; -NALOXONE HCL INJ/PF 0.4 MG/1 ML SDV ONE; -ONDANSETRON HCL INJ/PF 4 MG/2 ML SDV ONE
[2018-04-08] MEDS: LACTATED RINGERS 1000 ML IV PRN ×2 (13:00→13:50)
[2018-04-08 13:21] VITALS: BP 129/78
--- NOTE | 2018-04-08 13:37 | RADIOLOGY REPORT (SQ) ---
EXAM DESCRIPTION: CHEST SINGLE VIEW COMPLETED DATE/TIME: 04/08/2018 12:37 pm REASON FOR STUDY: preop COMPARISON: 09/03/2016, 08/04/[address] angio chest 07/27/2014 EXAM PARAMETERS: NUMBER OF VIEWS: One view. TECHNIQUE: Single frontal radiographic view of the chest acquired. RADIATION DOSE: NA LIMITATIONS: None. FINDINGS: LUNGS AND PLEURA: No opacities, masses or pneumothorax. No pleural effusion. MEDIASTINUM AND HILAR STRUCTURES: No masses. Contour normal. HEART AND VASCULAR STRUCTURES: Heart normal in size. Normal vasculature. BONES: No acute findings. HARDWARE: Implanted cardiac monitoring device over the anterior chest wall, unchanged OTHER: No other significant finding. IMPRESSION: NO ACUTE RADIOGRAPHIC FINDING IN THE CHEST. TECHNICAL DOCUMENTATION: JOB ID: [id number] [employer]- All Rights Reserved Reading location - IP/workstation name: [facility]-[email or web address]
== END ==
LOC: OROUT 11:09
PROVIDERS: ATTEND Surgery
DX: Z01.818 Encounter for other preprocedural examination (principal); S31.109A Unspecified open wound of abdominal wall, unspecified quadrant without penetration into peritoneal cavity, initial encounter; E11.9 Type 2 diabetes mellitus without complications; I48.91 Unspecified atrial fibrillation; I10 Essential (primary) hypertension; J45.909 Unspecified asthma, uncomplicated; F32.9 Major depressive disorder, single episode, unspecified; E07.9 Disorder of thyroid, unspecified; K27.9 Peptic ulcer, site unspecified, unspecified as acute or chronic, without hemorrhage or perforation
CPT/HCPCS: 93005; 36415; 82962; 85027; 80048; 71045; 93010; J2765; S0028; A9270

== ENCOUNTER → 2018-04-18 | Outpatient (CLI) | payer MEDICARE, OTHER ==
[2018-04-18 09:33] LABS: ABSOLUTE BASOPHILS # (AUTO) 0.1 10^3/uL (0.0-0.2); ABSOLUTE EOSINOPHILS # (AUTO) 0.2 10^3/uL (0.0-0.6); ABSOLUTE LYMPHOCYTES (AUTO) 2.9 10^3/uL (0.5-4.7); ABSOLUTE MONOCYTES (AUTO) 0.8 10^3/uL (0.1-1.4); ABSOLUTE NEUT (AUTO) 4.6 10^3/uL (1.7-8.2); BASOPHILS % (AUTO) 0.8 % (0-2); EOSINOPHILS % (AUTO) 2.7 % (0-6); HEMATOCRIT 43.7 % (36.0-47.0); HEMOGLOBIN 14.9 g/dL (12.0-15.5); LYMPHOCYTES % (AUTO) 33.5 % (13-45); MEAN CORPUSCULAR HEMOGLOBIN 29.3 pg (27.0-33.4); MEAN CORPUSCULAR HGB CONC 34.1 g/dL (32.0-36.0); MEAN CORPUSCULAR VOLUME 86 fl (80-97); MONOCYTES % (AUTO) 9.3 % (3-13); PLATELET COUNT 264 10^3/uL (150-450); RED BLOOD COUNT 5.08 10^6/uL (3.72-5.28); RED CELL DISTRIBUTION WIDTH 15.4 % (11.5-14.0); SEGMENTED NEUTROPHILS % (AUTO) 53.7 % (42-78); TOTAL CELLS COUNTED % (AUTO) 100 %; WHITE BLOOD COUNT 8.5 10^3/uL (4.0-10.5)
[2018-04-18 10:15] LABS: ERYTHROCYTE SEDIMENTATION RATE 18 mm/hr (0-30)
== END ==
LOC: OD 08:30
PROVIDERS: ATTEND Surgery
DX: S31.109A Unspecified open wound of abdominal wall, unspecified quadrant without penetration into peritoneal cavity, initial encounter (principal); T81.89XA Other complications of procedures, not elsewhere classified, initial encounter; E11.9 Type 2 diabetes mellitus without complications; M19.90 Unspecified osteoarthritis, unspecified site; X58.XXXA Exposure to other specified factors, initial encounter
CPT/HCPCS: 36415; 85025; 85652; 86140

== ENCOUNTER → 2018-12-22 | Outpatient (CLI) | payer MEDICARE, OTHER ==
--- NOTE | 2018-12-22 12:43 | RADIOLOGY REPORT (SQ) ---
EXAM DESCRIPTION: U/S ABDOMEN LIMITED W/O DOP COMPLETED DATE/TIME: 12/22/2018 11:09 am REASON FOR STUDY: K76.0 FATTY (CHANGE OF) LIVER, NOT ELSEWHERE CLASSIFIED K76.0 FATTY (CHANGE OF) L IVER, NOT ELSEWHERE CLASSIFIED COMPARISON: None. TECHNIQUE: Dynamic and static grayscale images acquired of the abdomen and recorded on PACS. Additio nal selected color Doppler and spectral images recorded. LIMITATIONS: None. FINDINGS: PANCREAS: No masses. Visualized pancreatic duct normal caliber. LIVER: No masses. Echotexture mildly increased consistent with fatty infiltration. LIVER VASCULATURE: Normal directional flow of the main portal vein and hepatic veins. GALLBLADDER: 1.5 cm gallstone in the gallbladder neck, no other stones identified. Normal wall thickn ess. No pericholecystic fluid. ULTRASOUND-DETECTED THORNTON'S SIGN: Negative. INTRAHEPATIC DUCTS AND COMMON DUCT: CBD and intrahepatic ducts normal caliber. No filling defects. INFERIOR VENA CAVA: Normal flow. AORTA: No aneurysm identified. RIGHT KIDNEY: Normal size. Normal echogenicity. No solid or suspicious masses. No hydronephros is. No calcifications. PERITONEAL AND RIGHT PLEURAL SPACE: No ascites or effusions. OTHER: No other significant findings. IMPRESSION: No acute inflammatory changes. Cholelithiasis. Fatty liver. TECHNICAL DOCUMENTATION: JOB ID: [id number] [place]-72 2010 [employer]- All Rights Reserved Reading location - IP/workstation name: [facility]
== END ==
LOC: RAD 10:40
PROVIDERS: ATTEND Physician Assistant
DX: K76.0 Fatty (change of) liver, not elsewhere classified (principal); K80.20 Calculus of gallbladder without cholecystitis without obstruction
CPT/HCPCS: 76705

== ENCOUNTER 2019-02-12 05:27 | Inpatient (IN) | payer MEDICARE, OTHER ==
[2019-02-06 10:46] LABS: ABSOLUTE BASOPHILS # (AUTO) 0.1 10^3/uL (0.0-0.2); ABSOLUTE EOSINOPHILS # (AUTO) 0.2 10^3/uL (0.0-0.6); ABSOLUTE LYMPHOCYTES (AUTO) 2.6 10^3/uL (0.5-4.7); ABSOLUTE MONOCYTES (AUTO) 0.8 10^3/uL (0.1-1.4); ABSOLUTE NEUT (AUTO) 3.9 10^3/uL (1.7-8.2); BASOPHILS % (AUTO) 1.2 % (0-2); EOSINOPHILS % (AUTO) 2.6 % (0-6); HEMATOCRIT 44.1 % (36.0-47.0); HEMOGLOBIN 14.7 g/dL (12.0-15.5); LYMPHOCYTES % (AUTO) 33.7 % (13-45); MEAN CORPUSCULAR HEMOGLOBIN 28.7 pg (27.0-33.4); MEAN CORPUSCULAR HGB CONC 33.3 g/dL (32.0-36.0); MEAN CORPUSCULAR VOLUME 86 fl (80-97); MONOCYTES % (AUTO) 10.3 % (3-13); PLATELET COUNT 261 10^3/uL (150-450); RED BLOOD COUNT 5.12 10^6/uL (3.72-5.28); RED CELL DISTRIBUTION WIDTH 15.8 % (11.5-14.0); SEGMENTED NEUTROPHILS % (AUTO) 52.2 % (42-78); TOTAL CELLS COUNTED % (AUTO) 100 %; WHITE BLOOD COUNT 7.6 10^3/uL (4.0-10.5)
[2019-02-06 11:06] LABS: ANION GAP 10 (5-19); BLOOD UREA NITROGEN 9 mg/dL (7-20); CALCIUM 10.2 mg/dL (8.4-10.2); CARBON DIOXIDE 27 mmol/L (22-30); CHLORIDE 105 mmol/L (98-107); GLUCOSE 126 mg/dL (75-110); POTASSIUM 4.8 mmol/L (3.6-5.0)
--- NOTE | 2019-02-06 14:33 | EKG REPORT ---
SEVERITY:- BORDERLINE ECG - SINUS RHYTHM BORDERLINE LEFT AXIS DEVIATION BORDERLINE T ABNORMALITIES, DIFFUSE LEADS : Confirmed by: Lia Smith MD 06-Feb-2019 14:32:53
[~2019-02-12 05:27] MED LIST changes: -ALBUTEROL SULFATE 0.083% NEB 2.5 MG/3 ML AMPUL NEB ONE; -CEFAZOLIN 1 GM/D5W RTU 1 GM/50 ML RTUPB IV PRN; +CEFAZOLIN SODIUM 2 GM in DEXTROSE 5%-WATER 100 ML IV PRN; -FAMOTIDINE INJ/PF 20 MG/2 ML SDV IV ONE; +LACTATED RINGERS 1000 ML IV PRN; -METOCLOPRAMIDE HCL INJ/PF 10 MG/2 ML SDV IV ONE; -METOCLOPRAMIDE HCL INJ/PF 10 MG/2 ML SDV ONE; +METRONIDAZOLE 500 MG/NS RTU 500 MG/100 ML RTUPB IV ONE; +METRONIDAZOLE 500 MG/NS RTU 500 MG/100 ML RTUPB IV PRN
[2019-02-12 06:58] LABS: INTERNATIONAL RATION (INR) 1.11; PARTIAL THROMBOPLASTIN TIME 27.6 SEC (23.5-35.8); PROTHROMBIN TIME 14.3 SEC (11.4-15.4)
[2019-02-12] MEDS ORDERED: METOCLOPRAMIDE HCL INJ/PF 10 MG/2 ML SDV ONE (07:11)
[2019-02-12] MEDS ORDERED: FAMOTIDINE INJ/PF 20 MG/2 ML SDV IV ONE (07:11)
[2019-02-12] MEDS ORDERED: ALBUTEROL SULFATE 0.083% NEB 2.5 MG/3 ML AMPUL NEB ONE (07:12)
[2019-02-12] MEDS ORDERED: BUPIVACAINE HCL 0.25% /EPINEPHRINE INJ/PF 30 ML SDV INFIL ONE ×2 (08:06)
[2019-02-12] MEDS ORDERED: METHYLENE BLUE 50 MG/10 ML AMPULE MC ONE (08:07)
[2019-02-12] MEDS ORDERED: MEPERIDINE HCL/PF INJ 25 MG/1 ML DISP.SYRIN IV PRN (09:35)
[2019-02-12] MEDS ORDERED: MORPHINE SULFATE 10 MG/ML INJ IV PRN (09:35)
[2019-02-12] MEDS ORDERED: PROMETHAZINE HCL INJ 25 MG/1 ML VIAL IV PRN ×2 (09:35)
[2019-02-12] MEDS ORDERED: DIPHENHYDRAMINE HCL 50 MG/ML VIAL IV PRN (09:35)
[2019-02-12] MEDS ORDERED: OXYCODONE-ACETAMINOPHEN 5-325 MG TABLET PO PRN ×2 (09:35)
[2019-02-12] MEDS ORDERED: FENTANYL CITRATE INJ/PF 100 MCG/2 ML AMPUL IV PRN ×3 (09:35)
[2019-02-12] MEDS ORDERED: BUPIVACAINE INJ/PF LIPOSOME/PF 266 MG/20 ML SDV INJ ONE (11:35)
[2019-02-12] MEDS ORDERED: DEXTROSE 50%-WATER 25 GM/50 ML DISP.SYRIN IV PRN ×4 (12:00→12:45)
[2019-02-12] MEDS ORDERED: DEXTROSE 40% GEL 15 GM TUBE PO PRN ×4 (12:00→12:45)
[2019-02-12] MEDS ORDERED: GLUCAGON,HUMAN RECOMB 1 MG INJ SUBCUT PRN (12:00)
[2019-02-12] MEDS ORDERED: ONDANSETRON HCL INJ/PF 4 MG/2 ML SDV IV PRN (12:00)
[2019-02-12] MEDS ORDERED: PHARMACY COMMUNICATION ORDER MC NR (12:00)
[2019-02-12] MEDS ORDERED: GLUCAGON,HUMAN RECOMB 1 MG INJ IM PRN (12:45)
--- NOTE | 2019-02-12 12:58 | RADIOLOGY REPORT (SQ) ---
EXAM DESCRIPTION: KUB/ABDOMEN (SINGLE VIEW) COMPLETED DATE/TIME: 02/12/2019 12:32 pm REASON FOR STUDY: Check Placement of NG Tube S31.109A UNSP OPN WND ABD WALL, UNSP Q W/O PENET PERIT CAV, K80.20 CALCULUS OF GALLBLADDER W/O CHOLECYSTITIS W/O OBSTRUC Z79.01 ASSISTED (CURRENT) USE OF ANTICOAGULANTS COMPARISON: None. NUMBER OF VIEWS: One view. TECHNIQUE: Supine radiographic image of the abdomen acquired for nasogastric tube placement. LIMITATIONS: None. FINDINGS: Nasogastric tube tip and side port in the stomach. Bibasilar atelectasis. Grossly unremarkable bowel gas pattern upper abdomen. IMPRESSION: Nasogastric tube and side-port in the stomach TECHNICAL DOCUMENTATION: JOB ID: [id number] [employer]- All Rights Reserved Reading location - IP/workstation name: [email or web address]
[2019-02-12] MEDS ORDERED: DEXAMETHASONE SOD PHOSPHATE INJ 4 MG/1 ML VIAL ONE (13:33)
[2019-02-12] MEDS ORDERED: GLYCOPYRROLATE 1 MG/5 ML VIAL ONE (13:33)
[2019-02-12] MEDS ORDERED: ONDANSETRON HCL INJ/PF 4 MG/2 ML SDV ONE (13:33)
[2019-02-12] MEDS ORDERED: ROCURONIUM BROMIDE INJ 50 MG/5 ML VIAL IV ONE (13:33)
[2019-02-12] MEDS ORDERED: NEOSTIGMINE METHYLSULFATE 10 MG/10 ML VIAL ONE (13:33)
[2019-02-12] MEDS ORDERED: LIDOCAINE 2% INJ-PF (20 MG/ML) 2 ML AMPUL ONE (13:33)
[2019-02-12] MEDS: MORPHINE SULFATE 10 MG/ML INJ IV PRN ×2 (15:11→22:57)
[2019-02-12] MEDS: POTASSI CL 20 MEQ/D5-1/2NS 1L 1,000 ML IV PRN ×2 (15:25→23:04)
--- NOTE | 2019-02-12 16:57 | Operative Report ---
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 OPERATION: Exploratory laparotomy with excision of infected ventral hernia mesh aminal wall reconstruction all bowel resection abdominal panniculectomy and laparoscopic cholecystectomy and liver biopsy SURGEON: CARLOS A BAGLEY ANESTHESIA: GA TISSUE REMOVED OR ALTERED: Abdominal pannus, 15 cm segment of mid ileum, infected abdominal wall mesh, liver biopsy, gallbladder COMPLICATIONS: None ESTIMATED BLOOD LOSS: 150 cc INTRAOPERATIVE FINDINGS: Infected abdominal wall mesh that is eroding into the mid ileum, cirrhotic liver PROCEDURE: Patient was brought to the operating room and awake alert in stable condition placed the operative table supine position induced under general anesthesia intubated she was previously marked in the preop area and therefore we began after appropriate timeout. A curvilinear incision was made just above the pubic symphysis from the anterior superior iliac spine on the right was carried across the pubic symphysis to the anterior superior iliac spine on the left. We then began our dissection down through subcutaneous and fatty tissue with Bovie cautery down through Alexandru's fascia to the abdominal rectus muscle. We began by raising abdominal flap with Bovie cautery. As we approach the mid abdomen just at the level of the umbilicus we noted that the subcutaneous tissue was chronically indurated and I just came across that with Bovie cautery flush with the abdominal wall fascia as we did that we came across the sinus tract which was divided. Continued our mobilization of the abdominal pannus all the way to the xiphoid and the costal margin bilaterally. This was accomplished we then made a counter elliptical incision about the level of the umbilicus and carried our elliptical incision down with a 10 blade through the abdominal skin onto the the abdominal rectus muscle being able now to remove that excess abdominal skin which was sent to pathology. Once this was completed the patient was then taken out of reverse Trendelenburg position placed flat we turned our attention to the abdominal sinus tract I made a longitudinal incision to look directly over that in the midline approximately 10 cm long about 5 above and 5 below that sinus tract we carried our dissection down through subtenons tissue and fascia with Bovie cautery once this was completed we are able to grasp the lateral aspects of the fascia from the left side and mobilized the mesh away from the anterior abdominal fascia. This was done with blunt and sharp dissection in and asked allowing us to lift the abdominal fascia up away from the mesh. We then began doing it on the left side as we meticulously came around the mesh and freed from the abdominal fascia we noted at the lateral aspect of the mesh on the right side was affixed to the small bowel which appeared to be ileum. Attempt at dissecting the small bowel away from the mesh were not possible and therefore I think divided the mesh slightly with the Metzenbaum scissors allowing us to remove the majority of the mesh away from the abdominal cavity and leave section of it tacked onto the small bowel was cystic was completed I elected to remove that 15 cm long segment of small bowel that appeared to be denuded by the mesh removal and have intact mesh that appeared to might be fistulas into the small bowel. Performed a functional end-to-end anastomosis proximal and distal to that area of damage small bowel by the mesh and it was done with the with a [id number] This was done we closed the mesenteric defect with interrupted 3-0 silk suture. After this was completed we then closed the abdominal fascial defect in 2 layers the posterior sheath closed with #1 Vicryl suture placed in a Smead Ceron fashion. The posterior sheath was closed the midline incision was then imbricated upon itself with interrupted #1 Vicryl sutures placed in a Smead Ceron fashion. This completed we turned attention to the cystectomy. She was placed into the abdominal cavity through the suture previously closed suture line and the abdomen was insufflated with 6 L of CO2 gas a millimeter port was then placed at the inferior extent of the midline incision and intra-abdominal visualization revealed no evidence of Veress needle or trocar injury epigastric 5 mm port was placed under direct vision as well as 2 lateral 5 mm port the gallbladder was identified it was noted to be distended moderately thickened in addition to that the liver appeared to be somewhat cirrhotic the gallbladder was placed on traction and we identified the hepatoduodenal ligament we dissected the hepatoduodenal ligament isolating cystic duct and cystic artery 2 endoclips were placed on the stay side and one in the specimen side of both those 2 structures they were divided and the gallbladder was then dissected out of the liver bed with Bovie cautery was placed in Endobag and removed through the umbilical port site. In addition to that we then performed a liver biopsy using Metzenbaum scissors I excised a approximately 0.75 cm segment of the right edge of the liver. That down to pathology as a separate specimen the biopsy edge was then cauterized with the Bovie cautery to obtain good hemostasis. Once this was completed the pneumoperitoneum was reduced and the 4 fascial defects were closed with [id number] placed 0-0 Vicryl suture. This was completed we then proceeded with closure of the abdominal skin. The abdominal flap was then reapproximated to the perineal flap with 2-0 Vicryl sutures first closing it by approximating the Alexandru's fascia and then using interrupted 3-0 Vicryl sutures we closed the deep subcutaneous tissue and the intracuticular layer and then the skin was closed with intracuticular intracuticular 3-0 Monocryl suture. Sterile Steri-Strips were applied at the termination of the procedure and a abdominal binder was then applied should be noted that also to 10 [place] Paul drains were placed Blood loss for the procedure was 150 cc sponge needle counts were correct x2 the patient was awakened in the operating room extubated transferred to recovery in stable condition no complications sponge and needle counts were correct x2
[2019-02-12] MEDS: INSULIN REG, HUMAN 100 UNIT/ML 3 ML VIAL (PYX) SUBCUT SCH (17:53)
[2019-02-12] MEDS: FAMOTIDINE INJ/PF 20 MG/2 ML SDV IV SCH (22:58)
[2019-02-13] MEDS: INSULIN REG, HUMAN 100 UNIT/ML 3 ML VIAL (PYX) SUBCUT SCH ×4 (00:44→17:11)
[2019-02-13] MEDS: MORPHINE SULFATE 10 MG/ML INJ IV PRN ×4 (04:57→21:56)
[2019-02-13 06:38] LABS: ABSOLUTE BASOPHILS # (AUTO) 0.1 10^3/uL (0.0-0.2); ABSOLUTE LYMPHOCYTES (AUTO) 2.9 10^3/uL (0.5-4.7); ABSOLUTE MONOCYTES (AUTO) 1.8 10^3/uL (0.1-1.4); ABSOLUTE NEUT (AUTO) 7.7 10^3/uL (1.7-8.2); EOSINOPHILS % (AUTO) 0.4 % (0-6); HEMATOCRIT 38.9 % (36.0-47.0); LYMPHOCYTES % (AUTO) 23.1 % (13-45); MEAN CORPUSCULAR HEMOGLOBIN 28.6 pg (27.0-33.4); MEAN CORPUSCULAR HGB CONC 33.3 g/dL (32.0-36.0); MEAN CORPUSCULAR VOLUME 86 fl (80-97); MONOCYTES % (AUTO) 14.1 % (3-13); PLATELET COUNT 280 10^3/uL (150-450); RED BLOOD COUNT 4.54 10^6/uL (3.72-5.28); RED CELL DISTRIBUTION WIDTH 15.9 % (11.5-14.0); SEGMENTED NEUTROPHILS % (AUTO) 61.4 % (42-78); TOTAL CELLS COUNTED % (AUTO) 100 %; WHITE BLOOD COUNT 12.6 10^3/uL (4.0-10.5)
[2019-02-13 06:54] LABS: ANION GAP 9 (5-19); BLOOD UREA NITROGEN 15 mg/dL (7-20); CARBON DIOXIDE 28 mmol/L (22-30); CHLORIDE 103 mmol/L (98-107); GLUCOSE 172 mg/dL (75-110); POTASSIUM 4.6 mmol/L (3.6-5.0)
[2019-02-13] MEDS: POTASSI CL 20 MEQ/D5-1/2NS 1L 1,000 ML IV PRN ×2 (07:22→16:12)
--- NOTE | 2019-02-13 08:08 | PDOC PROGRESS REPORT ---
Subjective Progress Note for:: 02/13/19 Subjective:: pod #1 Reason For Visit: INFECTED ABDOMINAL MESH,VENTRAL HERNIA, Physical Exam Vital Signs: Temp Pulse Resp BP Pulse Ox 97.9 F 97 17 150/71 H 96 02/13/19 00:10 02/13/19 00:10 02/13/19 00:10 02/13/19 00:10 02/13/19 04:19 Intake & Output 02/12/19 02/13/19 02/14/19 06:59 06:59 06:59 Intake Total 0 4646 1000 Output Total 4445 Balance 0 201 1000 Weight 88 kg 88.8 kg General appearance: PRESENT: no acute distress Head exam: PRESENT: normocephalic Eye exam: PRESENT: EOMI Ear exam: PRESENT: normal external ear exam Mouth exam: PRESENT: moist Neck exam: PRESENT: full ROM Respiratory exam: PRESENT: clear to auscultation nithya Cardiovascular exam: PRESENT: RRR Pulses: PRESENT: normal radial pulses, normal femoral pulses Vascular exam: PRESENT: normal capillary refill GI/Abdominal exam: PRESENT: soft Rectal exam: PRESENT: deferred Musculoskeletal exam: PRESENT: ambulatory, full ROM Neurological exam: PRESENT: awake, oriented to person, oriented to place Psychiatric exam: PRESENT: appropriate affect Skin exam: PRESENT: dry Results Laboratory Results: 02/13/19 05:24 02/13/19 05:24 02/13/19 02/13/19 05:24 05:24 WBC 12.6 H RBC 4.54 Hgb 13.0 Hct 38.9 MCV 86 MCH 28.6 MCHC 33.3 RDW 15.9 H Plt Count 280 Seg Neutrophils % 61.4 Lymphocytes % 23.1 Monocytes % 14.1 H Eosinophils % 0.4 Basophils % 1.0 Absolute Neutrophils 7.7 Absolute Lymphocytes 2.9 Absolute Monocytes 1.8 H Absolute Eosinophils 0.0 Absolute Basophils 0.1 Sodium 139.7 Potassium 4.6 Chloride 103 Carbon Dioxide 28 Anion Gap 9 BUN 15 Creatinine 0.55 Est GFR ( Amer) > 60 Est GFR (Non-Af Amer) > 60 Glucose 172 H Calcium 9.0 Impressions: KUB X-Ray 02/12/19 12:03 IMPRESSION: Nasogastric tube and side-port in the stomach Assessment & Plan - Plan Summary Plan Summary: pod #1 s/p abdominalplasty small bowel resection for infected mesh doing well pod [address] plan out of bed today cont ng till return of bowel function labs reviewed.
[2019-02-13] MEDS: FAMOTIDINE INJ/PF 20 MG/2 ML SDV IV SCH ×2 (09:26→21:55)
[2019-02-14] MEDS: POTASSI CL 20 MEQ/D5-1/2NS 1L 1,000 ML IV PRN ×2 (00:25→16:39)
[2019-02-14] MEDS: INSULIN REG, HUMAN 100 UNIT/ML 3 ML VIAL (PYX) SUBCUT SCH ×4 (01:50→18:13)
[2019-02-14 04:23] LABS: ABSOLUTE BASOPHILS # (AUTO) 0.1 10^3/uL (0.0-0.2); ABSOLUTE EOSINOPHILS # (AUTO) 0.5 10^3/uL (0.0-0.6); ABSOLUTE LYMPHOCYTES (AUTO) 3.6 10^3/uL (0.5-4.7); ABSOLUTE MONOCYTES (AUTO) 1.7 10^3/uL (0.1-1.4); ABSOLUTE NEUT (AUTO) 7.6 10^3/uL (1.7-8.2); BASOPHILS % (AUTO) 0.7 % (0-2); EOSINOPHILS % (AUTO) 3.6 % (0-6); HEMATOCRIT 38.3 % (36.0-47.0); HEMOGLOBIN 12.7 g/dL (12.0-15.5); LYMPHOCYTES % (AUTO) 26.8 % (13-45); MEAN CORPUSCULAR HEMOGLOBIN 28.4 pg (27.0-33.4); MEAN CORPUSCULAR HGB CONC 33.1 g/dL (32.0-36.0); MEAN CORPUSCULAR VOLUME 86 fl (80-97); MONOCYTES % (AUTO) 12.5 % (3-13); PLATELET COUNT 239 10^3/uL (150-450); RED BLOOD COUNT 4.46 10^6/uL (3.72-5.28); RED CELL DISTRIBUTION WIDTH 16.1 % (11.5-14.0); SEGMENTED NEUTROPHILS % (AUTO) 56.4 % (42-78); TOTAL CELLS COUNTED % (AUTO) 100 %; WHITE BLOOD COUNT 13.5 10^3/uL (4.0-10.5)
[2019-02-14 04:52] LABS: ANION GAP 9 (5-19); BLOOD UREA NITROGEN 10 mg/dL (7-20); CALCIUM 8.8 mg/dL (8.4-10.2); CARBON DIOXIDE 25 mmol/L (22-30); CHLORIDE 103 mmol/L (98-107); GLUCOSE 153 mg/dL (75-110); POTASSIUM 4.2 mmol/L (3.6-5.0)
--- NOTE | 2019-02-14 07:05 | PDOC PROGRESS REPORT ---
Subjective Progress Note for:: 02/14/19 Subjective:: feels ok Reason For Visit: INFECTED ABDOMINAL MESH,VENTRAL HERNIA, Physical Exam Vital Signs: Temp Pulse Resp BP Pulse Ox 98.1 F 110 H 14 142/74 H 96 02/13/19 23:53 02/13/19 23:53 02/13/19 23:53 02/13/19 23:53 02/13/19 23:53 Intake & Output 02/13/19 02/14/19 02/15/19 06:59 06:59 06:59 Intake Total 4646 3220 Output Total 4445 2695 Balance 201 525 Weight 88.8 kg 90.9 kg General appearance: PRESENT: no acute distress Head exam: PRESENT: normocephalic Eye exam: PRESENT: EOMI Ear exam: PRESENT: normal external ear exam Mouth exam: PRESENT: moist Neck exam: PRESENT: full ROM Respiratory exam: PRESENT: clear to auscultation nithya Cardiovascular exam: PRESENT: RRR Pulses: PRESENT: +2 pedal pulses bilateral GI/Abdominal exam: PRESENT: hypoactive bowel sounds Rectal exam: PRESENT: deferred Gentrourinary exam: PRESENT: indwelling catheter Extremities exam: PRESENT: full ROM Musculoskeletal exam: PRESENT: full ROM Neurological exam: PRESENT: alert, awake, oriented to person, oriented to place Psychiatric exam: PRESENT: normal mood Skin exam: PRESENT: dry Results Laboratory Results: 02/14/19 03:52 02/14/19 03:52 02/14/19 02/14/19 03:52 03:52 WBC 13.5 H RBC 4.46 Hgb 12.7 Hct 38.3 MCV 86 MCH 28.4 MCHC 33.1 RDW 16.1 H Plt Count 239 Seg Neutrophils % 56.4 Lymphocytes % 26.8 Monocytes % 12.5 Eosinophils % 3.6 Basophils % 0.7 Absolute Neutrophils 7.6 Absolute Lymphocytes 3.6 Absolute Monocytes 1.7 H Absolute Eosinophils 0.5 Absolute Basophils 0.1 Sodium 137.1 Potassium 4.2 Chloride 103 Carbon Dioxide 25 Anion Gap 9 BUN 10 Creatinine 0.50 L Est GFR ( Amer) > 60 Est GFR (Non-Af Amer) > 60 Glucose 153 H Calcium 8.8 Impressions: KUB X-Ray 02/12/19 12:03 IMPRESSION: Nasogastric tube and side-port in the stomach Assessment & Plan - Plan Summary Plan Summary: doing ok was up in chair taking ice chips wound clean dry will cont ng today increase activity.
[2019-02-14] MEDS: FAMOTIDINE INJ/PF 20 MG/2 ML SDV IV SCH ×2 (11:16→22:39)
[2019-02-14] MEDS: MORPHINE SULFATE 10 MG/ML INJ IV PRN (12:54)
[2019-02-15] MEDS: POTASSI CL 20 MEQ/D5-1/2NS 1L 1,000 ML IV PRN ×2 (02:45→12:07)
[2019-02-15 05:58] LABS: ABSOLUTE BASOPHILS # (AUTO) 0.1 10^3/uL (0.0-0.2); ABSOLUTE EOSINOPHILS # (AUTO) 0.5 10^3/uL (0.0-0.6); ABSOLUTE LYMPHOCYTES (AUTO) 3.6 10^3/uL (0.5-4.7); ABSOLUTE MONOCYTES (AUTO) 1.3 10^3/uL (0.1-1.4); ABSOLUTE NEUT (AUTO) 6.3 10^3/uL (1.7-8.2); BASOPHILS % (AUTO) 0.5 % (0-2); EOSINOPHILS % (AUTO) 4.3 % (0-6); HEMATOCRIT 37.9 % (36.0-47.0); HEMOGLOBIN 12.4 g/dL (12.0-15.5); LYMPHOCYTES % (AUTO) 30.7 % (13-45); MEAN CORPUSCULAR HEMOGLOBIN 28.3 pg (27.0-33.4); MEAN CORPUSCULAR HGB CONC 32.8 g/dL (32.0-36.0); MEAN CORPUSCULAR VOLUME 86 fl (80-97); MONOCYTES % (AUTO) 10.8 % (3-13); PLATELET COUNT 227 10^3/uL (150-450); RED CELL DISTRIBUTION WIDTH 15.9 % (11.5-14.0); SEGMENTED NEUTROPHILS % (AUTO) 53.7 % (42-78); TOTAL CELLS COUNTED % (AUTO) 100 %; WHITE BLOOD COUNT 11.8 10^3/uL (4.0-10.5)
[2019-02-15 06:24] LABS: ANION GAP 9 (5-19); BLOOD UREA NITROGEN 10 mg/dL (7-20); CALCIUM 8.6 mg/dL (8.4-10.2); CARBON DIOXIDE 26 mmol/L (22-30); CHLORIDE 102 mmol/L (98-107); GLUCOSE 161 mg/dL (75-110)
[2019-02-15] MEDS: INSULIN REG, HUMAN 100 UNIT/ML 3 ML VIAL (PYX) SUBCUT SCH ×4 (06:24→17:03)
--- NOTE | 2019-02-15 08:24 | PDOC PROGRESS REPORT ---
Subjective Progress Note for:: 02/15/19 Subjective:: feels ok, passed flatus Reason For Visit: INFECTED ABDOMINAL MESH,VENTRAL HERNIA, Physical Exam Vital Signs: Temp Pulse Resp BP Pulse Ox 98.6 F 94 16 139/71 H 95 02/14/19 23:00 02/14/19 23:00 02/14/19 23:00 02/14/19 23:00 02/14/19 23:00 Intake & Output 02/14/19 02/15/19 02/16/19 06:59 06:59 06:59 Intake Total 3220 2790 Output Total 2695 1800 Balance 525 990 Weight 90.9 kg 89.4 kg General appearance: PRESENT: no acute distress Head exam: PRESENT: normocephalic Eye exam: PRESENT: EOMI Ear exam: PRESENT: normal external ear exam Mouth exam: PRESENT: moist Neck exam: PRESENT: full ROM Respiratory exam: PRESENT: clear to auscultation nithya Cardiovascular exam: PRESENT: RRR Pulses: PRESENT: normal radial pulses, normal femoral pulses Vascular exam: PRESENT: normal capillary refill GI/Abdominal exam: PRESENT: soft, other - wound clean dry Extremities exam: PRESENT: full ROM Musculoskeletal exam: PRESENT: full ROM Neurological exam: PRESENT: alert, awake, oriented to person Psychiatric exam: PRESENT: appropriate affect Skin exam: PRESENT: dry Results Laboratory Results: 02/15/19 05:13 02/15/19 05:13 02/15/19 02/15/19 05:13 05:13 WBC 11.8 H RBC 4.40 Hgb 12.4 Hct 37.9 MCV 86 MCH 28.3 MCHC 32.8 RDW 15.9 H Plt Count 227 Seg Neutrophils % 53.7 Lymphocytes % 30.7 Monocytes % 10.8 Eosinophils % 4.3 Basophils % 0.5 Absolute Neutrophils 6.3 Absolute Lymphocytes 3.6 Absolute Monocytes 1.3 Absolute Eosinophils 0.5 Absolute Basophils 0.1 Sodium 137.3 Potassium 4.0 Chloride 102 Carbon Dioxide 26 Anion Gap 9 BUN 10 Creatinine 0.41 L Est GFR ( Amer) > 60 Est GFR (Non-Af Amer) > 60 Glucose 161 H Calcium 8.6 Impressions: KUB X-Ray 02/12/19 12:03 IMPRESSION: Nasogastric tube and side-port in the stomach Assessment & Plan - Plan Summary Plan Summary: doing well passed flatus will dc ng dc gonzalez clear liquids
[2019-02-15] MEDS: FAMOTIDINE INJ/PF 20 MG/2 ML SDV IV SCH ×2 (10:32→21:18)
[2019-02-15] MEDS: MORPHINE SULFATE 10 MG/ML INJ IV PRN (10:32)
[2019-02-16] MEDS: INSULIN REG, HUMAN 100 UNIT/ML 3 ML VIAL (PYX) SUBCUT SCH ×2 (00:42→06:22)
[2019-02-16 04:13] LABS: ABSOLUTE BASOPHILS # (AUTO) 0.1 10^3/uL (0.0-0.2); ABSOLUTE EOSINOPHILS # (AUTO) 0.5 10^3/uL (0.0-0.6); ABSOLUTE LYMPHOCYTES (AUTO) 3.3 10^3/uL (0.5-4.7); ABSOLUTE MONOCYTES (AUTO) 1.4 10^3/uL (0.1-1.4); ABSOLUTE NEUT (AUTO) 4.8 10^3/uL (1.7-8.2); BASOPHILS % (AUTO) 0.8 % (0-2); EOSINOPHILS % (AUTO) 5.3 % (0-6); HEMATOCRIT 36.6 % (36.0-47.0); HEMOGLOBIN 12.3 g/dL (12.0-15.5); LYMPHOCYTES % (AUTO) 32.7 % (13-45); MEAN CORPUSCULAR HEMOGLOBIN 28.9 pg (27.0-33.4); MEAN CORPUSCULAR HGB CONC 33.5 g/dL (32.0-36.0); MEAN CORPUSCULAR VOLUME 86 fl (80-97); MONOCYTES % (AUTO) 13.5 % (3-13); PLATELET COUNT 242 10^3/uL (150-450); RED BLOOD COUNT 4.24 10^6/uL (3.72-5.28); RED CELL DISTRIBUTION WIDTH 15.9 % (11.5-14.0); SEGMENTED NEUTROPHILS % (AUTO) 47.7 % (42-78); TOTAL CELLS COUNTED % (AUTO) 100 %
[2019-02-16 04:37] LABS: ANION GAP 9 (5-19); BLOOD UREA NITROGEN 8 mg/dL (7-20); CALCIUM 8.5 mg/dL (8.4-10.2); CARBON DIOXIDE 26 mmol/L (22-30); CHLORIDE 103 mmol/L (98-107); GLUCOSE 155 mg/dL (75-110); POTASSIUM 3.7 mmol/L (3.6-5.0)
--- NOTE | 2019-02-16 07:34 | PDOC DISCHARGE SUMMARY ---
General - Admit/Disc Date/PCP Admission Date/Primary Care Provider: 02/12/19 12:00 SANDRA JARRETT MD Discharge Date: 02/16/19 - Discharge Diagnosis (1) Infected prosthetic mesh of abdominal wall Is this a current diagnosis for this admission?: Yes (2) Infected prosthetic mesh of abdominal wall Is this a current diagnosis for this admission?: Yes - Additional Information Discharge Diet: As Tolerated Discharge Activity: Activity As Tolerated, No Lifting Over 10 Pounds, No Lifting/Push/Pulling Home Medications: Atorvastatin Calcium [Lipitor 40 mg Tablet] 40 mg PO QHS 09/03/16 Buspirone HCl [Buspar 5 mg Tablet] 10 mg PO Q12 09/03/16 Docusate Sodium [Colace 100 mg Capsule] 100 mg PO BIDP PRN 09/03/16 Empagliflozin [Jardiance] 25 mg PO DAILY 09/03/16 Fexofenadine HCl [Salima] 180 mg PO DAILY 09/03/16 Insulin Glargine,Hum.rec.anlog [Lantus Solostar] 11 units SQ QPM 09/03/16 Levothyroxine Sodium [Synthroid] 175 mcg PO Q6AM 09/03/16 Losartan Potassium [Cozaar 25 mg Tablet] 25 mg PO DAILY 09/03/16 Metformin HCl [Metformin ER Gastric] 1,000 mg PO BID 09/03/16 Montelukast Sodium [Singulair 10 mg Tablet] 10 mg PO QPM 09/03/16 Henagar-3 Acid Ethyl Esters [Lovaza 1 gm Capsule] 1,000 mg PO DAILY 09/03/16 Sitagliptin Phosphate [Januvia] 100 mg PO DAILY 09/03/16 Venlafaxine HCl ER [Effexor Xr 75 mg Cap.sr] 225 mg PO DAILY 09/03/16 Calcium Carbonate/Vitamin D3 [Calcium 500 + Vit D Caplet] 1 each PO DAILY 03/18/18 Cyanocobalamin (Vitamin B-12) [Vitamin B-12 1000 Mcg Tablet] 1,000 mcg PO DAILY 02/12/19 Ferrous Sulfate [Feosol 325 mg Tablet] 325 mg PO BID 02/12/19 History of Present Illness History of Present Illness: ATILIO LARA is a 68 year old female who was admitted for an elective surgery for an abdominal wall reconstruction and cholecystectomy underwent the procedure on the day of admission tolerated well still being discharged home today Hospital Course Hospital Course: Clarence is a 68-year-old female who was admitted for elective abdominal wall re construction removal of infected mesh repair of ventral hernia and cholecystectomy she underwent the procedure on the date of admission tolerated well had a routine benign postoperative course NG tube was initially placed during surgery because of a small bowel resection that was required because of mesh infection. The NG tube was removed when she had return of bowel function she was started on a clear liquid diet today she is tolerating a liquid diet she is tolerating that well she has [address] Gino-L[address] dra[address] in place will will be removed as an outpatient Physical Exam Vital Signs: Temp Pulse Resp BP Pulse Ox 98.6 F 82 18 126/68 H 95 02/16/19 00:18 02/16/19 00:18 02/16/19 00:18 02/16/19 00:18 02/16/19 00:18 Intake & Output 02/15/19 02/16/19 02/17/19 06:59 06:59 06:59 Intake Total 2790 2685 Output Total 1800 600 Balance 990 2085 Weight 89.4 kg 87.8 kg General appearance: PRESENT: no acute distress Head exam: PRESENT: normocephalic Eye exam: PRESENT: EOMI Ear exam: PRESENT: normal external ear exam Mouth exam: PRESENT: moist Neck exam: PRESENT: full ROM Respiratory exam: PRESENT: clear to auscultation nithya Cardiovascular exam: PRESENT: RRR Pulses: PRESENT: normal radial pulses, normal femoral pulses GI/Abdominal exam: PRESENT: soft - Wound is clean dry she has Steri-Strips in place and 2 Gino-Lomas drains Rectal exam: PRESENT: deferred Extremities exam: PRESENT: full ROM Musculoskeletal exam: PRESENT: full ROM Neurological exam: PRESENT: alert, awake, oriented to person, oriented to place Psychiatric exam: PRESENT: appropriate affect Skin exam: PRESENT: dry Results Laboratory Results: 02/16/19 03:03 02/16/19 03:03 02/16/19 02/16/19 03:03 03:03 WBC 10.0 RBC 4.24 Hgb 12.3 Hct 36.6 MCV 86 MCH 28.9 MCHC 33.5 RDW 15.9 H Plt Count 242 Seg Neutrophils % 47.7 Lymphocytes % 32.7 Monocytes % 13.5 H Eosinophils % 5.3 Basophils % 0.8 Absolute Neutrophils 4.8 Absolute Lymphocytes 3.3 Absolute Monocytes 1.4 Absolute Eosinophils 0.5 Absolute Basophils 0.1 Sodium 137.6 Potassium 3.7 Chloride 103 Carbon Dioxide 26 Anion Gap 9 BUN 8 Creatinine 0.43 L Est GFR ( Amer) > 60 Est GFR (Non-Af Amer) > 60 Glucose 155 H Calcium 8.5 Impressions: KUB X-Ray 02/12/19 12:03 IMPRESSION: Nasogastric tube and side-port in the stomach Qualifiers - * PATIENT BEING DISCHARGED WITH ANY OF THE FOLLOWING DIAGNOSIS: No Acute Heart Failure - Is this a Heart Failure Patient?: No Plan Time Spent: Less than 30 Minutes - Is ready for discharge home she will be given a follow-up appointment with me 7 to 10 days after discharge
[2019-02-16] MEDS: FAMOTIDINE INJ/PF 20 MG/2 ML SDV IV SCH (10:02)
[2019-02-16 10:26] VITALS: BP 137/71
== END 2019-02-16 10:30 | disposition home or self-care (01) | DRG 909 ==
LOC: OROUT 05:27 → EDSTATUS 07:30 → 5 12:00
PROVIDERS: ADMIT Surgery; ATTEND Surgery
PROC: 0DT80ZZ Resection of Small Intestine, Open Approach (ICD-10-PCS; 2019-02-12)
PROC: 0FT44ZZ Resection of Gallbladder, Percutaneous Endoscopic Approach (ICD-10-PCS; 2019-02-12)
PROC: 0FB04ZX Excision of Liver, Percutaneous Endoscopic Approach, Diagnostic (ICD-10-PCS; 2019-02-12)
PROC: 0WQF0ZZ Repair Abdominal Wall, Open Approach (ICD-10-PCS; 2019-02-12)
PROC: 0WPF0JZ Removal of Synthetic Substitute from Abdominal Wall, Open Approach (ICD-10-PCS; principal; 2019-02-12 07:30)
PROC: 0WBF0ZZ Excision of Abdominal Wall, Open Approach (ICD-10-PCS; 2019-02-12 07:30)
DX: T85.79XA Infection and inflammatory reaction due to other internal prosthetic devices, implants and grafts, initial encounter (principal); S31.109A Unspecified open wound of abdominal wall, unspecified quadrant without penetration into peritoneal cavity, initial encounter; K80.20 Calculus of gallbladder without cholecystitis without obstruction; L08.89 Other specified local infections of the skin and subcutaneous tissue; K21.9 Gastro-esophageal reflux disease without esophagitis; E78.5 Hyperlipidemia, unspecified; I48.91 Unspecified atrial fibrillation; E11.8 Type 2 diabetes mellitus with unspecified complications; I10 Essential (primary) hypertension; J45.909 Unspecified asthma, uncomplicated; F32.9 Major depressive disorder, single episode, unspecified; Z79.01 Long term (current) use of anticoagulants; Z79.899 Other long term (current) drug therapy; Z79.84 Long term (current) use of oral hypoglycemic drugs; Z79.4 Long term (current) use of insulin; Z79.51 Long term (current) use of inhaled steroids
CPT/HCPCS: 00790; 36415; 74018; 80048; 82947; 82962; 85025; 85610; 85730; 88304; 88305; 88307; 88313; 93005; 93010; 94799; C1781; C9290; J0690; J1100; J1815; J2270; J2405; J2710; J2765; J3010; J3480; J3490; J7060; Q9968; S0028

== ENCOUNTER → 2019-07-17 | Outpatient (CLI) | payer MEDICARE, OTHER ==
--- NOTE | 2019-07-17 11:18 | WOMENS IMAGING REPORT ---
EXAM DESCRIPTION: 3D SCREENING MAMMO BILAT COMPLETED DATE/TIME: 07/17/2019 10:10 am REASON FOR STUDY: Z12.31 ENCOUNTER FOR SCREENING MAMMOGRAM FOR MALIGNANT NEOPLASM OF BREAST Z12.31 ENCNTR SCREEN MAMMOGRAM FOR MALIGNANT NEOPLASM OF JOSEFINA COMPARISON: 2012 to 2016 EXAM PARAMETERS: Views: Standard craniocaudal and mediolateral oblique views of each breast recorded using digital acquisition and breast tomosynthesis. Read with the assistance of CAD. .[facility] - [employer] Version 9.2 LIMITATIONS: None. FINDINGS: No suspicious masses, suspicious calcifications or architectural distortion. No areas of c oncern. IMPRESSION: NEGATIVE MAMMOGRAM. BIRADS 1. BREAST DENSITY: b. There are scattered areas of fibroglandular density. BIRAD: ASSESSMENT: 1 NEGATIVE RECOMMENDATION: ROUTINE SCREENING COMMENT: The patient has been notified of the results by letter per MQSA requirements. Additional no tification policies are in place for contacting patient with suspicious or incomplete findings. Quality ID #[id number]: [employer] [place] [employer] recommends an annual screening mammogram for women aged 40 years or over. This facility utilizes a reminder system to ensure that all patients receive reminder letters, and/or direct phone calls for appointments. This includes reminders for routine scr eening mammograms, diagnostic mammograms, or other Breast Imaging Interventions when appropriate. Th is patient will be placed in the appropriate reminder system. TECHNICAL DOCUMENTATION: FINDING NUMBER: (1) ASSESSMENT: (1) JOB ID: [id number] [employer]- All Rights Reserved Reading location - IP/workstation name: [email or web address]
== END ==
LOC: WI 09:55
PROVIDERS: ATTEND Family Medicine
DX: Z12.31 Encounter for screening mammogram for malignant neoplasm of breast (principal)
CPT/HCPCS: 77063; 77067